=== PATIENT | female | born 1940 | race Caucasian/White ===

== ENCOUNTER 2017-05-06 02:24 | Emergency (ER) | payer OTHER, SELFPAY ==
[~2017-05-06] VITALS: Ht 152.4 cm; Wt 46.7 kg
[~2017-05-06 02:24] MED LIST: ACET325; ALBU3IS INH; ALBU90OI6 INH; ALPR.5 PO; ASPI81CH PO; AZIT250 PO; BISM87SU; BUDE6HFA; CEPH500 PO; CONEST.3; CONEST.625 PO; CONEST1.25 PO; ESTR2 PO; FLUT1DIS5 INH; GABA100 PO; HYDACE10B PO; IBUP400 PO; Mucinex600 MG PO; NITR.6SL SL; Norco 10-325 T1 EACH PO; Norco 5-325 Ta1 EACH PO; OXYACE5T PO; POTCHL20ER PO; PRED20 PO; Prednisone20 MG PO; Premarin0.3 MG PO; Silvadene20 GM TP; TRAM50 PO; Zithromax250 MG PO; [UNRECOGNIZED DRUG - CODE]
[2017-05-06] MEDS ORDERED: BUDE6HFA INH (02:43)
[2018-03-05] MEDS ORDERED: GABA100 PO (19:29)
[2018-03-05] MEDS ORDERED: Flagyl500 MG PO (22:39)
[2018-03-05] MEDS ORDERED: Cipro500 MG PO (22:39)
== END 2017-05-06 02:50 | disposition home or self-care (01) ==
LOC: ER 02:24
DX: R00.2 Palpitations (principal); J44.9 Chronic obstructive pulmonary disease, unspecified; I48.91 Unspecified atrial fibrillation; Z90.710 Acquired absence of both cervix and uterus; Z90.2 Acquired absence of lung [part of]; Z90.89 Acquired absence of other organs; Z87.891 Personal history of nicotine dependence
CPT/HCPCS: 93005; 93010; 99283

== ENCOUNTER 2017-06-11 13:09 | Inpatient (IN) | payer OTHER, SELFPAY ==
[~2017-06-11] VITALS: Ht 154.9 cm; Wt 47.3 kg
[~2017-06-11 13:09] MED LIST changes: +BUDE6HFA INH
[2017-06-11] MEDS ORDERED: Estradiol0.5 MG PO (13:20)
[2017-06-11] MEDS ORDERED: FLUT1DIS5 INH (13:21)
[2017-06-11] MEDS ORDERED: GABA100 PO (13:21)
[2017-06-11 14:29] LABS: BASOPHILS ABSOLUTE AUTO 0.01 K/mm3 (0.00-0.23); BASOPHILS PERCENT AUTO 0 % (0-2); EOSINOPHILS ABSOLUTE AUTO 0.01 K/mm3 (0.00-0.68); EOSINOPHILS PERCENT AUTO 0 % (0-6); Hematocrit 33.5 % (33.0-51.0); Hemoglobin 10.9 g/dL (11.5-16.0); IMMATURE GRAN ABSOLUTE AUTO 0.04 K/mm3 (0.00-0.10); IMMATURE GRAN PERCENT AUTO 1 % (0-1); LYMPHOCYTES ABSOLUTE AUTO 0.63 K/mm3 (0.84-5.20); LYMPHOCYTES PERCENT AUTO 9 % (21-46); MONOCYTES ABSOLUTE AUTO 0.11 K/mm3 (0.16-1.47); MONOCYTES PERCENT AUTO 2 % (4-13); Mean Corpuscular HGB 28.9 pg (26.0-34.0); Mean Corpuscular HGB Conc 32.5 g/dL (31.5-36.5); Mean Corpuscular Volume 89 fL (80-100); NEUTROPHILS ABSOLUTE AUTO 5.93 K/mm3 (1.96-9.15); NEUTROPHILS PERCENT AUTO 88 % (41-73); RDW Coefficient Variation 13.3 % (11.7-14.2); RDW Standard Deviation 43.7 fL (35.1-46.3); Red Blood Cell Count 3.77 M/mm3 (3.80-5.20); White Blood Cell Count 6.73 K/mm3 (4.00-11.30)
[2017-06-11 14:35] LABS: Mean Platelet Volume 10.1 fL (9.1-12.4); Platelet Count 317 K/mm3 (150-400)
[2017-06-11 14:46] LABS: Alanine Aminotransfer (ALT/SGP 27 U/L (12-78); Albumin, Blood 2.8 g/dL (3.4-5.0); Albumin/Globulin Ratio 0.5 (0.8-1.8); Alk Phos 88 U/L (50-136); Anion Gap 10 mmol/L (6-16); Aspartate Aminotrans (AST/SGOT 18 U/L (12-37); Bilirubin, Total 0.3 mg/dL (0.1-1.0); Blood Urea Nitrogen 9 mg/dL (8-24); Bun/Creatinine Ratio 18.6 (12.0-20.0); CO2, Blood 23 mmol/L (21-32); Calcium, Blood 8.9 mg/dL (8.5-10.1); Chloride, Blood 100 mmol/L (98-108); Creatinine, Blood 0.48 mg/dL (0.40-1.00); Globulin, Blood 5.1 g/dL (2.2-4.0); Glomerular Filtration Rate >60 (60-); Glucose, Blood 131 mg/dL (70-99); Potassium, Blood 3.6 mmol/L (3.5-5.5); Sodium, Blood 133 mmol/L (136-145); Total Protein, Blood 7.9 g/dL (6.4-8.2); Troponin I <0.015 ng/mL (0.000-0.040)
[2017-06-11] MEDS ORDERED: ALBU90OI61 INH (23:10)
[2017-06-11] MEDS ORDERED: CENTRUM SILVER1 EAC3 PO (23:12)
[2017-06-11] MEDS ORDERED: Calcium Citrat200 MG PO (23:13)
[2017-06-11] MEDS ORDERED: CYAN500 PO (23:14)
[2017-06-11] MEDS ORDERED: MAGOXI400 PO (23:14)
[2017-06-11] MEDS ORDERED: CHOL10002 PO (23:16)
[2017-06-11] MEDS ORDERED: AZIT250 PO (23:17)
[2017-06-11] MEDS ORDERED: LEVFLO250 PO (23:17)
[2017-06-11] MEDS ORDERED: PENICILLIN IM (23:18)
[2017-06-11] MEDS ORDERED: PRED10 PO (23:20)
[2017-06-12 05:23] LABS: BASOPHILS ABSOLUTE AUTO 0.01 K/mm3 (0.00-0.23); BASOPHILS PERCENT AUTO 0 % (0-2); EOSINOPHILS PERCENT AUTO 0 % (0-6); Hematocrit 33.6 % (33.0-51.0); Hemoglobin 11.2 g/dL (11.5-16.0); IMMATURE GRAN ABSOLUTE AUTO 0.04 K/mm3 (0.00-0.10); IMMATURE GRAN PERCENT AUTO 1 % (0-1); LYMPHOCYTES ABSOLUTE AUTO 0.86 K/mm3 (0.84-5.20); LYMPHOCYTES PERCENT AUTO 11 % (21-46); MONOCYTES ABSOLUTE AUTO 0.13 K/mm3 (0.16-1.47); MONOCYTES PERCENT AUTO 2 % (4-13); Mean Corpuscular HGB 29.1 pg (26.0-34.0); Mean Corpuscular HGB Conc 33.3 g/dL (31.5-36.5); Mean Corpuscular Volume 87 fL (80-100); Mean Platelet Volume 9.9 fL (9.1-12.4); NEUTROPHILS ABSOLUTE AUTO 6.85 K/mm3 (1.96-9.15); NEUTROPHILS PERCENT AUTO 87 % (41-73); Platelet Count 419 K/mm3 (150-400); RDW Coefficient Variation 13.6 % (11.7-14.2); RDW Standard Deviation 42.4 fL (35.1-46.3); Red Blood Cell Count 3.85 M/mm3 (3.80-5.20); White Blood Cell Count 7.89 K/mm3 (4.00-11.30)
[2017-06-12 05:40] LABS: Anion Gap 8 mmol/L (6-16); Blood Urea Nitrogen 9 mg/dL (8-24); CO2, Blood 26 mmol/L (21-32); Chloride, Blood 101 mmol/L (98-108); Glomerular Filtration Rate >60 (60-); Glucose, Blood 140 mg/dL (70-99); Potassium, Blood 3.7 mmol/L (3.5-5.5); Sodium, Blood 135 mmol/L (136-145)
[2017-06-15 05:36] LABS: BASOPHILS ABSOLUTE AUTO 0.01 K/mm3 (0.00-0.23); BASOPHILS PERCENT AUTO 0 % (0-2); EOSINOPHILS ABSOLUTE AUTO 0.02 K/mm3 (0.00-0.68); EOSINOPHILS PERCENT AUTO 0 % (0-6); Hematocrit 31.3 % (33.0-51.0); Hemoglobin 10.3 g/dL (11.5-16.0); IMMATURE GRAN ABSOLUTE AUTO 0.12 K/mm3 (0.00-0.10); IMMATURE GRAN PERCENT AUTO 1 % (0-1); LYMPHOCYTES ABSOLUTE AUTO 2.93 K/mm3 (0.84-5.20); LYMPHOCYTES PERCENT AUTO 30 % (21-46); MONOCYTES ABSOLUTE AUTO 0.81 K/mm3 (0.16-1.47); MONOCYTES PERCENT AUTO 8 % (4-13); Mean Corpuscular HGB 28.9 pg (26.0-34.0); Mean Corpuscular HGB Conc 32.9 g/dL (31.5-36.5); Mean Corpuscular Volume 88 fL (80-100); Mean Platelet Volume 9.9 fL (9.1-12.4); NEUTROPHILS ABSOLUTE AUTO 5.87 K/mm3 (1.96-9.15); NEUTROPHILS PERCENT AUTO 60 % (41-73); Platelet Count 449 K/mm3 (150-400); RDW Coefficient Variation 13.7 % (11.7-14.2); RDW Standard Deviation 44.3 fL (35.1-46.3); Red Blood Cell Count 3.56 M/mm3 (3.80-5.20); White Blood Cell Count 9.76 K/mm3 (4.00-11.30)
[2017-06-15 05:56] LABS: Anion Gap 7 mmol/L (6-16); Blood Urea Nitrogen 15 mg/dL (8-24); Bun/Creatinine Ratio 29.7 (12.0-20.0); CO2, Blood 30 mmol/L (21-32); Calcium, Blood 8.5 mg/dL (8.5-10.1); Chloride, Blood 101 mmol/L (98-108); Creatinine, Blood 0.51 mg/dL (0.40-1.00); Glomerular Filtration Rate >60 (60-); Glucose, Blood 91 mg/dL (70-99); Potassium, Blood 3.8 mmol/L (3.5-5.5); Sodium, Blood 138 mmol/L (136-145)
[2017-06-15] MEDS ORDERED: DOCU100 PO (10:50)
[2017-06-15] MEDS ORDERED: SACC250C PO (10:51)
[2018-03-05] MEDS ORDERED: GABA100 PO (19:29)
[2018-03-05] MEDS ORDERED: Cipro500 MG PO (22:39)
[2018-03-05] MEDS ORDERED: Flagyl500 MG PO (22:39)
== END 2017-06-15 11:20 | disposition home or self-care (01) | DRG 190 ==
LOC: ER 13:09 → PCU 17:19 → MEDS 17:19 → ENPENDDIS 06-15 10:00 → MEDS 06-15 11:20
PROVIDERS: Emergency Medicine; Hospitalist; Internal Medicine
DX: J44.0 Chronic obstructive pulmonary disease with (acute) lower respiratory infection (principal); J18.9 Pneumonia, unspecified organism; I48.0 Paroxysmal atrial fibrillation; E87.1 Hypo-osmolality and hyponatremia; Z99.81 Dependence on supplemental oxygen; J44.1 Chronic obstructive pulmonary disease with (acute) exacerbation; F41.9 Anxiety disorder, unspecified; G89.29 Other chronic pain; M54.9 Dorsalgia, unspecified; Z66 Do not resuscitate; Z85.118 Personal history of other malignant neoplasm of bronchus and lung; Z90.2 Acquired absence of lung [part of]; Z87.891 Personal history of nicotine dependence; Z88.5 Allergy status to narcotic agent; Z88.8 Allergy status to other drugs, medicaments and biological substances; Z91.040 Latex allergy status; Z79.899 Other long term (current) drug therapy
CPT/HCPCS: 36415; 71046; 71260; 80048; 80053; 84484; 85025; 93005; 93010; 94640; 94760; 94761; 96365; 96367; 96375; 97116; 97161; 99285; G8978; G8979; G8980; J0696; J1650; J1956; J2920; J2930; J3475; Q9967

== ENCOUNTER 2017-10-21 02:04 | Emergency (ER) | payer OTHER, SELFPAY ==
[~2017-10-21] VITALS: Ht 154.9 cm; Wt 48.1 kg
[~2017-10-21 02:04] MED LIST changes: +ALBU90OI61 INH; +CENTRUM SILVER1 EAC3 PO; +CHOL10002 PO; +CYAN500 PO; +Calcium Citrat200 MG PO; +DOCU100 PO; +Estradiol0.5 MG PO; +LEVFLO250 PO; +MAGOXI400 PO; +PENICILLIN IM; +PRED10 PO; +SACC250C PO
[2017-10-21 03:11] LABS: Source, Urine Catheter
[2017-10-21 03:14] LABS: BASOPHILS ABSOLUTE AUTO 0.04 K/mm3 (0.00-0.23); BASOPHILS PERCENT AUTO 0 % (0-2); EOSINOPHILS ABSOLUTE AUTO 0.04 K/mm3 (0.00-0.68); EOSINOPHILS PERCENT AUTO 0 % (0-6); Hematocrit 34.6 % (33.0-51.0); Hemoglobin 11.5 g/dL (11.5-16.0); IMMATURE GRAN ABSOLUTE AUTO 0.07 K/mm3 (0.00-0.10); IMMATURE GRAN PERCENT AUTO 1 % (0-1); LYMPHOCYTES ABSOLUTE AUTO 1.35 K/mm3 (0.84-5.20); LYMPHOCYTES PERCENT AUTO 10 % (21-46); MONOCYTES ABSOLUTE AUTO 0.65 K/mm3 (0.16-1.47); MONOCYTES PERCENT AUTO 5 % (4-13); Mean Corpuscular HGB 29.4 pg (26.0-34.0); Mean Corpuscular HGB Conc 33.2 g/dL (31.5-36.5); Mean Corpuscular Volume 89 fL (80-100); Mean Platelet Volume 10.2 fL (9.1-12.4); NEUTROPHILS PERCENT AUTO 84 % (41-73); Platelet Count 255 K/mm3 (150-400); RDW Coefficient Variation 13.2 % (11.7-14.2); RDW Standard Deviation 43.2 fL (35.1-46.3); Red Blood Cell Count 3.91 M/mm3 (3.80-5.20); White Blood Cell Count 12.95 K/mm3 (4.00-11.30)
[2017-10-21 03:16] LABS: Bilirubin, Urine Neg (Neg); Blood, Urine Neg (Neg); Glucose Qualitative, Urine Neg (Neg); Ketones, Urine Neg (Neg); Leukocyte Esterase, Urine Neg (Neg); Nitrite, Urine Neg (Neg); Protein, Urine Neg (Neg); Specific Gravity, Urine 1.005 (1.003-1.022); Urobilinogen, Urine NORM (Normal)
[2017-10-21 03:18] LABS: Appearance, Urine Clear (Clear); Color, Urine Pale Yellow (P-Yellow)
[2017-10-21 03:28] LABS: Prothrombin Time Results 10.3 Sec (9.7-11.5)
[2017-10-21 03:29] LABS: Alanine Aminotransfer (ALT/SGP 27 U/L (12-78); Albumin, Blood 3.6 g/dL (3.4-5.0); Alk Phos 74 U/L (50-136); Anion Gap 8 mmol/L (6-16); Aspartate Aminotrans (AST/SGOT 35 U/L (12-37); Bilirubin, Total 0.7 mg/dL (0.1-1.0); Blood Urea Nitrogen 8 mg/dL (8-24); Bun/Creatinine Ratio 14.7 (12.0-20.0); CO2, Blood 27 mmol/L (21-32); Calcium, Blood 8.6 mg/dL (8.5-10.1); Chloride, Blood 99 mmol/L (98-108); Creatinine, Blood 0.54 mg/dL (0.40-1.00); Globulin, Blood 3.7 g/dL (2.2-4.0); Glomerular Filtration Rate >60 (60-); Glucose, Blood 107 mg/dL (70-99); Potassium, Blood 4.4 mmol/L (3.5-5.5); Sodium, Blood 134 mmol/L (136-145); Total Protein, Blood 7.3 g/dL (6.4-8.2); Troponin I <0.015 ng/mL (0.000-0.040)
== END 2017-10-21 04:46 | disposition home or self-care (01) ==
LOC: ER 02:04
PROVIDERS: Emergency Medicine
DX: J44.1 Chronic obstructive pulmonary disease with (acute) exacerbation (principal); Z91.040 Latex allergy status; Z88.8 Allergy status to other drugs, medicaments and biological substances; Z88.5 Allergy status to narcotic agent; Z79.899 Other long term (current) drug therapy; Z79.2 Long term (current) use of antibiotics; J45.909 Unspecified asthma, uncomplicated; I48.91 Unspecified atrial fibrillation; Z87.891 Personal history of nicotine dependence
CPT/HCPCS: 71046; 80053; 81003; 83605; 84484; 85025; 85610; 85730; 87086; 93005; 93010; 99283

== ENCOUNTER 2017-10-24 09:01 | Emergency (ER) | payer OTHER, SELFPAY ==
[~2017-10-24] VITALS: Ht 160 cm; Wt 56.7 kg
[2017-10-24 09:34] LABS: BASOPHILS ABSOLUTE AUTO 0.05 K/mm3 (0.00-0.23); BASOPHILS PERCENT AUTO 1 % (0-2); EOSINOPHILS PERCENT AUTO 1 % (0-6); Hematocrit 34.1 % (33.0-51.0); Hemoglobin 11.5 g/dL (11.5-16.0); IMMATURE GRAN ABSOLUTE AUTO 0.02 K/mm3 (0.00-0.10); IMMATURE GRAN PERCENT AUTO 0 % (0-1); LYMPHOCYTES ABSOLUTE AUTO 2.99 K/mm3 (0.84-5.20); LYMPHOCYTES PERCENT AUTO 27 % (21-46); MONOCYTES ABSOLUTE AUTO 0.89 K/mm3 (0.16-1.47); MONOCYTES PERCENT AUTO 8 % (4-13); Mean Corpuscular HGB 29.3 pg (26.0-34.0); Mean Corpuscular HGB Conc 33.7 g/dL (31.5-36.5); Mean Corpuscular Volume 87 fL (80-100); NEUTROPHILS ABSOLUTE AUTO 7.01 K/mm3 (1.96-9.15); NEUTROPHILS PERCENT AUTO 63 % (41-73); RDW Coefficient Variation 13.2 % (11.7-14.2); RDW Standard Deviation 41.4 fL (35.1-46.3); Red Blood Cell Count 3.93 M/mm3 (3.80-5.20); White Blood Cell Count 11.06 K/mm3 (4.00-11.30)
[2017-10-24 09:41] LABS: Anion Gap 10 mmol/L (6-16); Blood Urea Nitrogen 6 mg/dL (8-24); Bun/Creatinine Ratio 9.9 (12.0-20.0); CO2, Blood 25 mmol/L (21-32); Calcium, Blood 8.9 mg/dL (8.5-10.1); Chloride, Blood 103 mmol/L (98-108); Glomerular Filtration Rate >60 (60-); Glucose, Blood 157 mg/dL (70-99); Potassium, Blood 3.9 mmol/L (3.5-5.5); Sodium, Blood 138 mmol/L (136-145); Troponin I <0.015 ng/mL (0.000-0.040)
[2017-10-24 09:44] LABS: Mean Platelet Volume 10.5 fL (9.1-12.4); Platelet Count 240 K/mm3 (150-400)
== END 2017-10-24 11:44 | disposition home or self-care (01) ==
LOC: ER 09:01
PROVIDERS: Emergency Medicine
DX: J44.1 Chronic obstructive pulmonary disease with (acute) exacerbation (principal); F41.9 Anxiety disorder, unspecified; Z91.041 Radiographic dye allergy status; Z88.8 Allergy status to other drugs, medicaments and biological substances; Z88.5 Allergy status to narcotic agent; Z79.899 Other long term (current) drug therapy; I48.91 Unspecified atrial fibrillation; Z87.891 Personal history of nicotine dependence
CPT/HCPCS: 71045; 80048; 84484; 85025; 93005; 93010; 94640; 96361; 96374; 99284; J2930; J7030

== ENCOUNTER 2018-05-18 11:23 | Emergency (ER) | payer OTHER ==
[~2018-05-18] VITALS: Ht 152.4 cm; Wt 48.5 kg
[~2018-05-18 11:23] MED LIST changes: +Cipro500 MG PO; +Flagyl500 MG PO
[2018-05-18 12:30] LABS: BASOPHILS ABSOLUTE AUTO 0.05 K/mm3 (0.00-0.23); BASOPHILS PERCENT AUTO 1 % (0-2); EOSINOPHILS PERCENT AUTO 2 % (0-6); Hematocrit 38.6 % (33.0-51.0); Hemoglobin 12.5 g/dL (11.5-16.0); IMMATURE GRAN ABSOLUTE AUTO 0.01 K/mm3 (0.00-0.10); IMMATURE GRAN PERCENT AUTO 0 % (0-1); LYMPHOCYTES ABSOLUTE AUTO 2.09 K/mm3 (0.84-5.20); LYMPHOCYTES PERCENT AUTO 42 % (21-46); MONOCYTES ABSOLUTE AUTO 0.39 K/mm3 (0.16-1.47); MONOCYTES PERCENT AUTO 8 % (4-13); Mean Corpuscular HGB Conc 32.4 g/dL (31.5-36.5); Mean Corpuscular Volume 93 fL (80-100); Mean Platelet Volume 9.7 fL (9.1-12.4); NEUTROPHILS ABSOLUTE AUTO 2.33 K/mm3 (1.96-9.15); NEUTROPHILS PERCENT AUTO 47 % (41-73); Platelet Count 258 K/mm3 (150-400); RDW Standard Deviation 47.8 fL (35.1-46.3); Red Blood Cell Count 4.17 M/mm3 (3.80-5.20); White Blood Cell Count 4.97 K/mm3 (4.00-11.30)
[2018-05-18 13:09] LABS: Alanine Aminotransfer (ALT/SGP 23 U/L (12-78); Albumin, Blood 3.6 g/dL (3.4-5.0); Alk Phos 61 U/L (50-136); Anion Gap 7 mmol/L (6-16); Aspartate Aminotrans (AST/SGOT 22 U/L (12-37); Bilirubin, Total 0.6 mg/dL (0.1-1.0); Blood Urea Nitrogen 8 mg/dL (8-24); Bun/Creatinine Ratio 13.8 (12.0-20.0); CO2, Blood 29 mmol/L (21-32); Calcium, Blood 8.4 mg/dL (8.5-10.1); Chloride, Blood 102 mmol/L (98-108); Creatinine, Blood 0.58 mg/dL (0.40-1.00); Ethanol (Alcohol), Blood, Med <3 mg/dL; Globulin, Blood 3.6 g/dL (2.2-4.0); Glomerular Filtration Rate >60 (60-); Glucose, Blood 95 mg/dL (70-99); Potassium, Blood 4.1 mmol/L (3.5-5.5); Sodium, Blood 138 mmol/L (136-145); Total Protein, Blood 7.2 g/dL (6.4-8.2); Troponin I <0.015 ng/mL (0.000-0.040)
[2018-05-18 13:16] LABS: Source, Urine Voided
[2018-05-18 13:34] LABS: Bilirubin, Urine Neg (Neg); Blood, Urine Neg (Neg); Glucose Qualitative, Urine Neg (Neg); Ketones, Urine Neg (Neg); Leukocyte Esterase, Urine 1+ (Neg); Nitrite, Urine Neg (Neg); Protein, Urine Neg (Neg); Specific Gravity, Urine 1.015 (1.003-1.022); Urobilinogen, Urine NORM (Normal)
[2018-05-18 13:50] LABS: Appearance, Urine Clear (Clear); Color, Urine Yellow (P-Yellow)
[2018-05-18 13:52] LABS: Bacteria Few /hpf; Red Blood Cells, Urine 0-2 /hpf (0-2); Squamous Epithelial Cells Few /hpf (Few)
[2018-05-18] MEDS ORDERED: MECL12.5 PO (14:05)
== END 2018-05-18 14:38 | disposition home or self-care (01) ==
LOC: ER 11:23
PROVIDERS: Emergency Medicine
DX: E87.8 Other disorders of electrolyte and fluid balance, not elsewhere classified (principal); Z91.040 Latex allergy status; Z88.8 Allergy status to other drugs, medicaments and biological substances; Z88.5 Allergy status to narcotic agent; Z79.899 Other long term (current) drug therapy; J44.9 Chronic obstructive pulmonary disease, unspecified; I48.91 Unspecified atrial fibrillation; Z87.891 Personal history of nicotine dependence
CPT/HCPCS: 36415; 70450; 71045; 80053; 81001; 84484; 85025; 87086; 93005; 93010; 96360; 96361; 99285-25; G0480; J2405; J7030

== ENCOUNTER 2019-01-09 04:23 | Emergency (ER) | payer OTHER ==
[~2019-01-09] VITALS: Ht 152.4 cm; Wt 61.2 kg
[~2019-01-09 04:23] MED LIST changes: +MECL12.5 PO
== END 2019-01-09 07:00 | disposition home or self-care (01) ==
LOC: ER 04:23
DX: F41.9 Anxiety disorder, unspecified (principal); G47.00 Insomnia, unspecified; J43.9 Emphysema, unspecified; Z85.118 Personal history of other malignant neoplasm of bronchus and lung; Z87.891 Personal history of nicotine dependence; Z91.040 Latex allergy status; I48.91 Unspecified atrial fibrillation; Z88.8 Allergy status to other drugs, medicaments and biological substances; Z88.5 Allergy status to narcotic agent; Z79.899 Other long term (current) drug therapy
CPT/HCPCS: 99283

== ENCOUNTER 2019-03-15 02:53 | Emergency (ER) | payer OTHER ==
[~2019-03-15] VITALS: Ht 152.4 cm; Wt 48.1 kg
[2019-03-15 03:34] LABS: BASOPHILS ABSOLUTE AUTO 0.06 K/mm3 (0.00-0.23); BASOPHILS PERCENT AUTO 1 % (0-2); EOSINOPHILS ABSOLUTE AUTO 0.37 K/mm3 (0.00-0.68); EOSINOPHILS PERCENT AUTO 4 % (0-6); Hematocrit 36.5 % (33.0-51.0); IMMATURE GRAN ABSOLUTE AUTO 0.01 K/mm3 (0.00-0.10); IMMATURE GRAN PERCENT AUTO 0 % (0-1); LYMPHOCYTES ABSOLUTE AUTO 1.95 K/mm3 (0.84-5.20); LYMPHOCYTES PERCENT AUTO 22 % (21-46); MONOCYTES ABSOLUTE AUTO 0.58 K/mm3 (0.16-1.47); MONOCYTES PERCENT AUTO 7 % (4-13); Mean Corpuscular HGB 30.8 pg (26.0-34.0); Mean Corpuscular HGB Conc 32.9 g/dL (31.5-36.5); Mean Corpuscular Volume 94 fL (80-100); Mean Platelet Volume 10.1 fL (9.1-12.4); NEUTROPHILS ABSOLUTE AUTO 5.88 K/mm3 (1.96-9.15); NEUTROPHILS PERCENT AUTO 66 % (41-73); Platelet Count 290 K/mm3 (150-400); RDW Standard Deviation 44.8 fL (35.1-46.3); White Blood Cell Count 8.85 K/mm3 (4.00-11.30)
[2019-03-15] MEDS ORDERED: BUSPIRONE (03:36)
[2019-03-15] MEDS ORDERED: FLUT1DIS5 INH (03:37)
[2019-03-15] MEDS ORDERED: LOSA25 (03:37)
[2019-03-15 03:52] LABS: Alanine Aminotransfer (ALT/SGP 18 U/L (12-78); Albumin, Blood 3.8 g/dL (3.4-5.0); Albumin/Globulin Ratio 0.9 (0.8-1.8); Alk Phos 72 U/L (50-136); Anion Gap 7 mmol/L (6-16); Aspartate Aminotrans (AST/SGOT 18 U/L (12-37); Bilirubin, Total 0.4 mg/dL (0.1-1.0); Blood Urea Nitrogen 9 mg/dL (8-24); Bun/Creatinine Ratio 15.1 (12.0-20.0); CO2, Blood 27 mmol/L (21-32); Calcium, Blood 9.4 mg/dL (8.5-10.1); Chloride, Blood 100 mmol/L (98-108); Globulin, Blood 4.1 g/dL (2.2-4.0); Glomerular Filtration Rate >60 (60-); Glucose, Blood 101 mg/dL (70-99); Potassium, Blood 3.7 mmol/L (3.5-5.5); Sodium, Blood 134 mmol/L (136-145); Total Protein, Blood 7.9 g/dL (6.4-8.2); Troponin I <0.015 ng/mL (0.000-0.040)
[2019-03-15 05:14] LABS: Source, Urine Clean Catch
[2019-03-15 05:18] LABS: Appearance, Urine Clear (Clear); Bilirubin, Urine Neg (Neg); Blood, Urine Neg (Neg); Color, Urine Yellow (P-Yellow); Glucose Qualitative, Urine Neg (Neg); Ketones, Urine Neg (Neg); Leukocyte Esterase, Urine 1+ (Neg); Nitrite, Urine Neg (Neg); Protein, Urine Neg (Neg); Urobilinogen, Urine NORM (Normal)
[2019-03-15 05:48] LABS: Bacteria Rare /hpf; Red Blood Cells, Urine Not Seen /hpf (0-2); Squamous Epithelial Cells Many /hpf (Few); White Blood Cells, Urine 0-2 /hpf (0-5)
== END 2019-03-15 06:45 | disposition home or self-care (01) ==
LOC: ER 02:53
PROVIDERS: Emergency Medicine
DX: R06.02 Shortness of breath (principal); J44.9 Chronic obstructive pulmonary disease, unspecified; I25.10 Atherosclerotic heart disease of native coronary artery without angina pectoris; I48.91 Unspecified atrial fibrillation; Z91.040 Latex allergy status; Z88.8 Allergy status to other drugs, medicaments and biological substances; Z88.5 Allergy status to narcotic agent; Z79.899 Other long term (current) drug therapy; Z79.51 Long term (current) use of inhaled steroids; Z99.81 Dependence on supplemental oxygen; Z87.891 Personal history of nicotine dependence
CPT/HCPCS: 36415; 71046; 80053; 81001; 84484; 85025; 93005; 93010; 99285-25

== ENCOUNTER 2019-07-02 15:14 | Emergency (ER) | payer OTHER ==
[~2019-07-02] VITALS: Ht 152.4 cm; Wt 43.1 kg
[~2019-07-02 15:14] MED LIST changes: +BUSPIRONE; +Klonopin0.5 MG PO; +LOSA25
[2019-07-02 15:50] LABS: BASOPHILS ABSOLUTE AUTO 0.04 K/mm3 (0.00-0.23); BASOPHILS PERCENT AUTO 1 % (0-2); EOSINOPHILS ABSOLUTE AUTO 0.09 K/mm3 (0.00-0.68); EOSINOPHILS PERCENT AUTO 1 % (0-6); Hematocrit 38.9 % (33.0-51.0); Hemoglobin 12.7 g/dL (11.5-16.0); IMMATURE GRAN ABSOLUTE AUTO 0.02 K/mm3 (0.00-0.10); IMMATURE GRAN PERCENT AUTO 0 % (0-1); LYMPHOCYTES ABSOLUTE AUTO 2.01 K/mm3 (0.84-5.20); LYMPHOCYTES PERCENT AUTO 26 % (21-46); MONOCYTES ABSOLUTE AUTO 0.45 K/mm3 (0.16-1.47); MONOCYTES PERCENT AUTO 6 % (4-13); Mean Corpuscular HGB 30.7 pg (26.0-34.0); Mean Corpuscular HGB Conc 32.6 g/dL (31.5-36.5); Mean Corpuscular Volume 94 fL (80-100); Mean Platelet Volume 10.5 fL (9.1-12.4); NEUTROPHILS ABSOLUTE AUTO 5.12 K/mm3 (1.96-9.15); NEUTROPHILS PERCENT AUTO 66 % (41-73); Platelet Count 286 K/mm3 (150-400); RDW Coefficient Variation 13.2 % (11.7-14.2); RDW Standard Deviation 46.3 fL (35.1-46.3); Red Blood Cell Count 4.14 M/mm3 (3.80-5.20); White Blood Cell Count 7.73 K/mm3 (4.00-11.30)
[2019-07-02 16:11] LABS: Alanine Aminotransfer (ALT/SGP 25 U/L (12-78); Albumin, Blood 3.6 g/dL (3.4-5.0); Albumin/Globulin Ratio 1.1 (0.8-1.8); Alk Phos 61 U/L (50-136); Anion Gap 4 mmol/L (6-16); Aspartate Aminotrans (AST/SGOT 21 U/L (12-37); Bilirubin, Total 0.5 mg/dL (0.1-1.0); Blood Urea Nitrogen 7 mg/dL (8-24); Bun/Creatinine Ratio 13.1 (12.0-20.0); CO2, Blood 27 mmol/L (21-32); Calcium, Blood 8.6 mg/dL (8.5-10.1); Chloride, Blood 108 mmol/L (98-108); Creatinine, Blood 0.53 mg/dL (0.40-1.00); Globulin, Blood 3.3 g/dL (2.2-4.0); Glomerular Filtration Rate >60 (60-); Glucose, Blood 88 mg/dL (70-99); Potassium, Blood 4.1 mmol/L (3.5-5.5); Sodium, Blood 139 mmol/L (136-145); Total Protein, Blood 6.9 g/dL (6.4-8.2); Troponin I <0.015 ng/mL (0.000-0.040)
[2019-07-02 16:28] LABS: Influenza A Negative (NEGATIVE)
[2019-07-02 16:29] LABS: Influenza B Negative (NEGATIVE)
== END 2019-07-02 17:30 | disposition home or self-care (01) ==
LOC: ER 15:14
PROVIDERS: Physician Assistant
DX: J44.9 Chronic obstructive pulmonary disease, unspecified (principal); J06.9 Acute upper respiratory infection, unspecified; I48.91 Unspecified atrial fibrillation; I10 Essential (primary) hypertension; I25.10 Atherosclerotic heart disease of native coronary artery without angina pectoris; Z91.040 Latex allergy status; Z88.6 Allergy status to analgesic agent; Z88.8 Allergy status to other drugs, medicaments and biological substances; Z88.5 Allergy status to narcotic agent; Z79.51 Long term (current) use of inhaled steroids; Z79.899 Other long term (current) drug therapy
CPT/HCPCS: 36415; 71046; 80053; 84484; 85025; 87804; 93005; 93010; 94640; 99284-25

== ENCOUNTER 2019-09-23 23:53 | Emergency (ER) | payer OTHER ==
[~2019-09-23] VITALS: Ht 152.4 cm; Wt 36.7 kg
== END 2019-09-24 01:16 | disposition home or self-care (01) ==
LOC: ER 23:53
DX: R04.0 Epistaxis (principal); R51 Headache; J44.9 Chronic obstructive pulmonary disease, unspecified; I25.10 Atherosclerotic heart disease of native coronary artery without angina pectoris; I48.91 Unspecified atrial fibrillation; F17.200 Nicotine dependence, unspecified, uncomplicated; Z91.040 Latex allergy status; Z88.8 Allergy status to other drugs, medicaments and biological substances; Z88.5 Allergy status to narcotic agent; Z79.899 Other long term (current) drug therapy
CPT/HCPCS: 30901; 99284

== ENCOUNTER 2020-10-19 04:36 | Inpatient (IN) | payer MEDICARE, OTHER ==
[~2020-10-19] VITALS: Ht 152.4 cm; Wt 35.8 kg
[2020-10-19 05:27] LABS: BASOPHILS ABSOLUTE AUTO 0.05 K/mm3 (0.00-0.23); BASOPHILS PERCENT AUTO 1 % (0-2); EOSINOPHILS ABSOLUTE AUTO 0.15 K/mm3 (0.00-0.68); EOSINOPHILS PERCENT AUTO 2 % (0-6); Hematocrit 34.3 % (33.0-51.0); Hemoglobin 11.4 g/dL (11.5-16.0); IMMATURE GRAN ABSOLUTE AUTO 0.02 K/mm3 (0.00-0.10); IMMATURE GRAN PERCENT AUTO 0 % (0-1); LYMPHOCYTES ABSOLUTE AUTO 1.84 K/mm3 (0.84-5.20); LYMPHOCYTES PERCENT AUTO 23 % (21-46); MONOCYTES ABSOLUTE AUTO 0.48 K/mm3 (0.16-1.47); MONOCYTES PERCENT AUTO 6 % (4-13); Mean Corpuscular HGB Conc 33.2 g/dL (31.5-36.5); Mean Corpuscular Volume 90 fL (80-100); NEUTROPHILS ABSOLUTE AUTO 5.59 K/mm3 (1.96-9.15); NEUTROPHILS PERCENT AUTO 69 % (41-73); Platelet Count 264 K/mm3 (150-400); RDW Coefficient Variation 13.4 % (11.7-14.2); RDW Standard Deviation 44.9 fL (35.1-46.3); White Blood Cell Count 8.13 K/mm3 (4.00-11.30)
[2020-10-19 05:48] LABS: Alanine Aminotransfer (ALT/SGP 62 U/L (12-78); Albumin, Blood 3.6 g/dL (3.4-5.0); Alk Phos 79 U/L (50-136); Anion Gap 5 mmol/L (6-16); Aspartate Aminotrans (AST/SGOT 107 U/L (12-37); Bilirubin, Total 1.2 mg/dL (0.1-1.0); Blood Urea Nitrogen 14 mg/dL (8-24); Bun/Creatinine Ratio 24.4 (12.0-20.0); CO2, Blood 28 mmol/L (21-32); Calcium, Blood 8.9 mg/dL (8.5-10.1); Chloride, Blood 100 mmol/L (98-108); Creatinine, Blood 0.57 mg/dL (0.40-1.00); Globulin, Blood 3.5 g/dL (2.2-4.0); Glomerular Filtration Rate >60 (60-); Glucose, Blood 104 mg/dL (70-99); Sodium, Blood 133 mmol/L (136-145); Total Protein, Blood 7.1 g/dL (6.4-8.2)
--- NOTE | 2020-10-19 16:33 | NUR ---
PT ARRIVED AT 1338 AOX4 AND COOPERATIVE OF CARE. PT 1 PERSON TO BEDSIDE COMMODE. PT TREATED FOR ABDOMINAL PAIN PER EMAR. PT RESTING IN BED A THIS TIME WITH CALL LIGHT WITHIN REACH. NO DISTRESS NOTED AT THIS TIME WILL CONTINUE TO MONITOR.
--- NOTE | 2020-10-19 18:20 | NUR ---
EMEMA ADMINISTERED, PT TOLERATED WELL AND HAD MEDIUM BM HARD AND FORMED.
--- NOTE | 2020-10-20 00:14 | NUR ---
BLOOD SUGAR OF 61 PT CONTINUES TO BE NPO. HOSPITALIST DR. QUINTANILLA NOTIFIED. HALF AMP OF D50 ORDERED PRN FOR HYPOGLYCEMIA. WILL GIVE ONCE PHARAMCY VERIFIES. DWIGHT ALSO ORDERED FOR PRN BLOOD SUGAR CHECKS IN ADDITION TO THE Q6 BS CHECKS.
[2020-10-20 05:15] LABS: Hematocrit 32.3 % (33.0-51.0); Hemoglobin 10.6 g/dL (11.5-16.0); Mean Corpuscular HGB 29.8 pg (26.0-34.0); Mean Corpuscular HGB Conc 32.8 g/dL (31.5-36.5); Mean Corpuscular Volume 91 fL (80-100); Mean Platelet Volume 10.3 fL (9.1-12.4); Platelet Count 256 K/mm3 (150-400); RDW Coefficient Variation 13.7 % (11.7-14.2); RDW Standard Deviation 46.2 fL (35.1-46.3); Red Blood Cell Count 3.56 M/mm3 (3.80-5.20); White Blood Cell Count 8.49 K/mm3 (4.00-11.30)
[2020-10-20 05:49] LABS: Alanine Aminotransfer (ALT/SGP 126 U/L (12-78); Albumin, Blood 3.2 g/dL (3.4-5.0); Alk Phos 102 U/L (50-136); Anion Gap 8 mmol/L (6-16); Aspartate Aminotrans (AST/SGOT 113 U/L (12-37); Bilirubin, Total 1.1 mg/dL (0.1-1.0); Blood Urea Nitrogen 7 mg/dL (8-24); Bun/Creatinine Ratio 13.9 (12.0-20.0); CO2, Blood 24 mmol/L (21-32); Calcium, Blood 8.3 mg/dL (8.5-10.1); Chloride, Blood 108 mmol/L (98-108); Globulin, Blood 3.2 g/dL (2.2-4.0); Glomerular Filtration Rate >60 (60-); Glucose, Blood 67 mg/dL (70-99); Potassium, Blood 3.4 mmol/L (3.5-5.5); Sodium, Blood 140 mmol/L (136-145); Total Protein, Blood 6.4 g/dL (6.4-8.2)
--- NOTE | 2020-10-20 06:49 | NUR ---
WELFARE WORKER SUMMARY PT A/O X4 WITH FORGETFULNESS. HALF AMP GIVEN X2 THIS SHIFT FOR HYPOGLYCEMIA. PT IS ASYOMPTOMAIC. PT HAS BEEN UP MOST OF THE NIGHT SHE HAD FREQUENT BOWEL MOVEMENTS AFTER ENEMA WAS GIVEN IN THE DAY. OTHER VITALS STABLE. MEDICATED FOR ABD PAIN X2 NOC SHIFT. CALL LIGHT WITHIN REACH, ABLE TO MAKE NEEDS KNOWN. REPORT GIVEN TO AM NURSE.
[2020-10-20] MEDS ORDERED: CLON.1 PO (10:14)
--- NOTE | 2020-10-20 18:09 | NUR ---
PT IS AOX4 AND COPERATIVE OF CARE. PT CONTINUES TO HAVE ABDOMINAL PAIN AND IS TREATED PER EMAR. PT HAS DENIED ANY NAUSEA AND IS A ONE PERSON WITH CANE TO RESTROOM. PLEASANT WITH ALL CARE WITH CONTINUE TO MONITOR.
--- NOTE | 2020-10-21 04:26 | NUR ---
DEBURRING AND TOOLING MACHINE OPERATOR SUMMARY PT A/O X4 WITH FORGETFULNESS. INDEPENDENT TO BSC. PT HAD 2 VERY SMALL BM'S THAT WERE PELLET LIKE. PT HAS HAD MULTIPLE FORMED SOFT BM'S THE NIGHT PRIOR. PT MEDICATED FOR ABD PAIN X3 DURING NOC SHIFT SO FAR. PT HAS STARTED ON CLEAR LIQUIDS DURING DAY SHIFT. VSS. ROOM AIR MAINTAINING GOOD 02 SATS. DENIED NAUSEA. CALL LIGHT WITHIN REACH, WILL CONTINUE TO MONITOR.
[2020-10-21 15:46] LABS: Hematocrit 30.8 % (33.0-51.0); Hemoglobin 10.3 g/dL (11.5-16.0); Mean Corpuscular HGB 30.5 pg (26.0-34.0); Mean Corpuscular HGB Conc 33.4 g/dL (31.5-36.5); Mean Corpuscular Volume 91 fL (80-100); Mean Platelet Volume 10.7 fL (9.1-12.4); Platelet Count 221 K/mm3 (150-400); RDW Coefficient Variation 13.8 % (11.7-14.2); Red Blood Cell Count 3.38 M/mm3 (3.80-5.20); White Blood Cell Count 8.47 K/mm3 (4.00-11.30)
[2020-10-21 16:12] LABS: Alanine Aminotransfer (ALT/SGP 77 U/L (12-78); Albumin/Globulin Ratio 0.9 (0.8-1.8); Alk Phos 86 U/L (50-136); Anion Gap 3 mmol/L (6-16); Aspartate Aminotrans (AST/SGOT 38 U/L (12-37); Bilirubin, Total 0.7 mg/dL (0.1-1.0); Blood Urea Nitrogen 4 mg/dL (8-24); Bun/Creatinine Ratio 9.5 (12.0-20.0); CO2, Blood 28 mmol/L (21-32); Calcium, Blood 8.4 mg/dL (8.5-10.1); Chloride, Blood 107 mmol/L (98-108); Creatinine, Blood 0.42 mg/dL (0.40-1.00); Globulin, Blood 3.4 g/dL (2.2-4.0); Glomerular Filtration Rate >60 (60-); Glucose, Blood 97 mg/dL (70-99); Potassium, Blood 4.2 mmol/L (3.5-5.5); Sodium, Blood 138 mmol/L (136-145); Total Protein, Blood 6.4 g/dL (6.4-8.2)
--- NOTE | 2020-10-21 17:33 | NUR ---
SHIFT SUMMARY PATIENT ALERT AND ORIENTED THIS SHIFT. PATIENT HAS BEEN INDEPENDENT IN THE ROOM. PATIENT MEDICATED FOR PAIN IN LUQ THROUGHOUT THIS SHIFT. NO ACUTE CHANGES THIS SHIFT. PATIENT SITTING UP IN BED THROUGHOUT THIS SHIFT. PATIENT CURRENTLY SITTING UP IN BED WATCHING TELEVISION.
--- NOTE | 2020-10-22 06:42 | NUR ---
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 PT has hx of colitis had several bowel movements yesterday, bowel care held. PT indep to bedside commode voids large amts of clear yellow urine. medicated for abd pain x 1 with helpful effect. Continues on IVF with potassium at 100 ml hour. advanced to full liquid diet in PT with panceratitis.
--- NOTE | 2020-10-22 14:40 | NUR ---
Met pt .in bed resting she reports to be doing nwell ans may be going home today or doran .Encouraged pt prayed for her.
[2020-10-22] MEDS ORDERED: MIRALAX17 G3 PO (15:11)
--- NOTE | 2020-10-22 17:34 | NUR ---
DISCHARGE SUMMARY PATIENT DISCHARGED TO HOME. PATIENT ALERT AND ORIENTED THIS SHIFT. PATIENT HAS BEEN INDEPENDENT IN THE ROOM THIS SHIFT. PATIENT MEDICATED 2X WITH ORAL PAIN MEDICATIONS FOR LUQ PAIN. PATIENT ADVANCED TO REGULAR DIET THIS SHIFT. PATIENT STATES THAT SHE "LOST HER FOOD TO [place]" SHORTLY AFTER LUNCH. WHEN EDUCATED THAT SHE WAS STILL RECOVERING AND MORE TIME IN THE HOSPITAL MAY BE BENEFICIAL, THE PATIENT CONTINUED TO INSIST ON DISCHARGE THIS SHIFT. PATIENT EDUCATED ON RISKS OF GOING HOME. PALIATIVE CARE IN THE ROOM WITH PATIENT PRIOR TO DISCHARGE TO DISCUSS PATIENT'S SITUATION. IV REMOVED PRIOR TO DISCHARGE. PATIENT DRESSED INDEPENDENTLY PRIOR TO DISCHARGE. PATIENT'S SISTER PROVIDING TRANSPORTATION HOME. PATIENT TO VEHICLE VIA WHEELCHAIR.
--- NOTE | 2020-10-22 18:08 | NUR ---
pt wanting to go home. she states she will do better at home. We reviewed the pat few months she quit smoking a month ago. 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 she has recently lost wieght again and now the panceatitsis. She spoke of her son who trajically by suicide and creied. She expressed financial stress with no secondary she states because of her cancer history they turn her down. we reviewed pancreatisis and GI distress. Gaver her dietary guidlines to take home. She is also a pt of dr Gibbs in pulmonology, She gave me permission to speak with him. Contacted him and reviewed her care. He was greatful for the update and will follow up. Pt high risk for readmission and return of cancer. She will allow me to call her at home. Will contact [facility] office of [facility] for insurance support. pt does not drive and states getting harder to walk to stol[place] when she cant get a ride. if futher illness or decline will see if she can get meals on wheels or more home support. Sh states she makes to much for medicaid. she sees father chico for spitual care will see if she can get grief couciling.
--- NOTE | 2020-10-22 18:11 | NUR ---
Spiritual care note: Mrs. Gonzalez was talkative and appeared to enjoy companionship and conversation. Her only child about a year ago from suicide, and she spoke at length about this loss. She reports a strong aki and even stronger political beliefs--making comments to the [employer] channel on TV. She appears spry and fiercely independant. Her relationship with her only sister is a carlos one, and the two are fighting often. Yet, Ly admits that when her son last year, "My sister was right there for me through the whole thing." Prayer and gentle beauty counselor was well recieved. She was in the process of discharge when we met. Her current POLST form from 2016 is incongruent with her wishes this admission. Therefore, if she returns to hospital, this should be addressed.
== END 2020-10-22 17:14 | disposition home or self-care (01) | DRG 439 ==
LOC: ER 04:36 → MEDS 12:10
PROVIDERS: Student in an Organized Health Care Education/Training Program; ADMIT Internal Medicine
DX: K85.90 Acute pancreatitis without necrosis or infection, unspecified (principal); J96.11 Chronic respiratory failure with hypoxia; K83.09 Other cholangitis; Z68.1 Body mass index [BMI] 19.9 or less, adult; J43.9 Emphysema, unspecified; I25.10 Atherosclerotic heart disease of native coronary artery without angina pectoris; Z66 Do not resuscitate; I48.0 Paroxysmal atrial fibrillation; K59.01 Slow transit constipation; H91.90 Unspecified hearing loss, unspecified ear; R63.6 Underweight; G89.29 Other chronic pain; E87.6 Hypokalemia; F17.200 Nicotine dependence, unspecified, uncomplicated; M54.9 Dorsalgia, unspecified; M62.84 Sarcopenia; E16.2 Hypoglycemia, unspecified; F41.9 Anxiety disorder, unspecified; Z88.5 Allergy status to narcotic agent; Z88.8 Allergy status to other drugs, medicaments and biological substances; Z88.6 Allergy status to analgesic agent; Z88.4 Allergy status to anesthetic agent; Z91.040 Latex allergy status; Z85.118 Personal history of other malignant neoplasm of bronchus and lung; Z90.2 Acquired absence of lung [part of]; Z98.890 Other specified postprocedural states; Z90.49 Acquired absence of other specified parts of digestive tract; Z87.440 Personal history of urinary (tract) infections; Z99.81 Dependence on supplemental oxygen; Z79.899 Other long term (current) drug therapy; Z79.51 Long term (current) use of inhaled steroids
CPT/HCPCS: 36415; 74177; 74181; 80053; 82947; 83690; 85025; 85027; 94640; 94760; 96361; 96365-59; 96375; 99285-25; A9270; G0480; J1170; J2270; J2543; J7030; J7120; Q9967

== ENCOUNTER 2021-03-03 10:33 | Emergency (ER) | payer OTHER ==
[~2021-03-03] VITALS: Ht 152.4 cm; Wt 40.8 kg
[~2021-03-03 10:33] MED LIST changes: +CLON.1 PO; +MIRALAX17 G3 PO
[2021-03-03 11:51] LABS: BASOPHILS ABSOLUTE AUTO 0.04 K/mm3 (0.00-0.23); BASOPHILS PERCENT AUTO 0 % (0-2); EOSINOPHILS ABSOLUTE AUTO 0.04 K/mm3 (0.00-0.68); EOSINOPHILS PERCENT AUTO 0 % (0-6); Hematocrit 37.2 % (33.0-51.0); Hemoglobin 11.9 g/dL (11.5-16.0); IMMATURE GRAN ABSOLUTE AUTO 0.06 K/mm3 (0.00-0.10); IMMATURE GRAN PERCENT AUTO 1 % (0-1); LYMPHOCYTES ABSOLUTE AUTO 1.35 K/mm3 (0.84-5.20); LYMPHOCYTES PERCENT AUTO 10 % (21-46); MONOCYTES ABSOLUTE AUTO 0.93 K/mm3 (0.16-1.47); MONOCYTES PERCENT AUTO 7 % (4-13); Mean Corpuscular Volume 91 fL (80-100); Mean Platelet Volume 9.5 fL (9.1-12.4); NEUTROPHILS ABSOLUTE AUTO 10.55 K/mm3 (1.96-9.15); NEUTROPHILS PERCENT AUTO 81 % (41-73); Platelet Count 345 K/mm3 (150-400); RDW Coefficient Variation 13.8 % (11.7-14.2); RDW Standard Deviation 46.3 fL (35.1-46.3); Red Blood Cell Count 4.11 M/mm3 (3.80-5.20); White Blood Cell Count 12.97 K/mm3 (4.00-11.30)
[2021-03-03 11:53] LABS: Alanine Aminotransfer (ALT/SGP 18 U/L (12-78); Albumin, Blood 3.3 g/dL (3.4-5.0); Albumin/Globulin Ratio 0.7 (0.8-1.8); Alk Phos 110 U/L (50-136); Anion Gap 4 mmol/L (6-16); Aspartate Aminotrans (AST/SGOT 16 U/L (12-37); Blood Urea Nitrogen 7 mg/dL (8-24); Bun/Creatinine Ratio 12.8 (12.0-20.0); CO2, Blood 27 mmol/L (21-32); Calcium, Blood 9.6 mg/dL (8.5-10.1); Chloride, Blood 102 mmol/L (98-108); Creatinine, Blood 0.55 mg/dL (0.40-1.00); Globulin, Blood 4.8 g/dL (2.2-4.0); Glomerular Filtration Rate >60 (60-); Glucose, Blood 118 mg/dL (70-99); Potassium, Blood 3.4 mmol/L (3.5-5.5); Sodium, Blood 133 mmol/L (136-145); Total Protein, Blood 8.1 g/dL (6.4-8.2)
[2021-03-03] MEDS ORDERED: Amoxicillin500 MG PO (17:26)
[2021-03-03] MEDS ORDERED: AZELASTINE137 MCG/01 (17:26)
== END 2021-03-03 19:00 | disposition home or self-care (01) ==
LOC: ER 10:33
PROVIDERS: Physician Assistant
DX: R04.0 Epistaxis (principal); J01.90 Acute sinusitis, unspecified; R10.9 Unspecified abdominal pain; F17.200 Nicotine dependence, unspecified, uncomplicated; Z91.040 Latex allergy status; Z88.5 Allergy status to narcotic agent; Z79.899 Other long term (current) drug therapy
CPT/HCPCS: 36415; 70450; 80053; 83690; 85025; 99284-25; A9270

== ENCOUNTER 2022-05-18 12:56 | Inpatient (IN) | payer OTHER ==
[~2022-05-18] VITALS: Ht 152.4 cm; Wt 40.1 kg
[~2022-05-18 12:56] MED LIST changes: +AZELASTINE137 MCG/01; +Amoxicillin500 MG PO
[2022-05-18 13:30] LABS: BASOPHILS ABSOLUTE AUTO 0.02 K/mm3 (0.00-0.23); BASOPHILS PERCENT AUTO 0 % (0-2); EOSINOPHILS ABSOLUTE AUTO 0.04 K/mm3 (0.00-0.68); EOSINOPHILS PERCENT AUTO 0 % (0-6); Hematocrit 37.7 % (33.0-51.0); Hemoglobin 12.2 g/dL (11.5-16.0); IMMATURE GRAN ABSOLUTE AUTO 0.13 K/mm3 (0.00-0.10); IMMATURE GRAN PERCENT AUTO 1 % (0-1); LYMPHOCYTES ABSOLUTE AUTO 1.84 K/mm3 (0.84-5.20); LYMPHOCYTES PERCENT AUTO 9 % (21-46); MONOCYTES ABSOLUTE AUTO 1.16 K/mm3 (0.16-1.47); MONOCYTES PERCENT AUTO 6 % (4-13); Mean Corpuscular HGB 28.2 pg (26.0-34.0); Mean Corpuscular HGB Conc 32.4 g/dL (31.5-36.5); Mean Corpuscular Volume 87 fL (80-100); Mean Platelet Volume 9.2 fL (9.1-12.4); NEUTROPHILS ABSOLUTE AUTO 17.48 K/mm3 (1.96-9.15); NEUTROPHILS PERCENT AUTO 85 % (41-73); Platelet Count 592 K/mm3 (150-400); RDW Coefficient Variation 13.4 % (11.7-14.2); RDW Standard Deviation 42.9 fL (35.1-46.3); Red Blood Cell Count 4.32 M/mm3 (3.80-5.20); White Blood Cell Count 20.67 K/mm3 (4.00-11.30)
[2022-05-18 13:45] LABS: Albumin, Blood 2.4 g/dL (3.4-5.0); Albumin/Globulin Ratio 0.5 (0.8-1.8); Bilirubin, Total 1.1 mg/dL (0.1-1.0); Bun/Creatinine Ratio 19.5 (12.0-20.0); Calcium, Blood 9.1 mg/dL (8.5-10.1); Creatinine, Blood 0.56 mg/dL (0.40-1.00); Globulin, Blood 5.3 g/dL (2.2-4.0); Potassium, Blood 2.7 mmol/L (3.5-5.5); Total Protein, Blood 7.7 g/dL (6.4-8.2)
[2022-05-18 17:50] LABS: Base Excess Venous 8.2 mmol/L; Bicarbonate Venous 30.8 mmol/L (24.0-30.0); PCO2 Venous 45.4 mmHg (38-42); pH Blood Venous 7.46 (7.34-7.37)
[2022-05-18 18:01] LABS: SARS-Cov-2 (COVID-19) PCR, MMC POSITIVE (NEGATIVE)
--- NOTE | 2022-05-18 23:25 | NUR ---
RESIDENT NOTIFIED NOTIFIED OF PT'S INCREASED HR, PT HAS BEEN SUSTAINING A HR OF 120-140, STATES SHE IS ANXIOUS AND THAT SHE USUALLY TAKES KLONIDINE & CATAPRESS @ NIGHT, SHE DENIES CP/PRESSURE BUT STATES IT IS A "LITTLE HARD TO CATCH MY BREATH", SPO2 REMAINS >95% ON 2L O2 VIA NC, LUNG SOUNDS UNCHANGED FROM ASSESSMENT. PAIGE WAS ALSO NOTIFIED THAT PT DID NOT RECIEVE FLUIDS UPON ADMISSION TO THE ER FOR SEPSIS PROTOCOL. A 500 ML NS BOLUS, NS @75 ML/HR X1 BAG,CATAPRESS & KLONIDINE WAS ORDERED AND GIVEN. CHARGE NURSE NOTIFIED.
[2022-05-19 01:06] LABS: Bun/Creatinine Ratio 19.7 (12.0-20.0); Calcium, Blood 8.9 mg/dL (8.5-10.1); Creatinine, Blood 0.51 mg/dL (0.40-1.00); Potassium, Blood 4.5 mmol/L (3.5-5.5)
[2022-05-19 04:15] LABS: Hematocrit 31.4 % (33.0-51.0); Hemoglobin 10.4 g/dL (11.5-16.0); Mean Corpuscular HGB 28.5 pg (26.0-34.0); Mean Corpuscular HGB Conc 33.1 g/dL (31.5-36.5); Mean Corpuscular Volume 86 fL (80-100); Mean Platelet Volume 9.2 fL (9.1-12.4); Platelet Count 463 K/mm3 (150-400); RDW Coefficient Variation 13.5 % (11.7-14.2); RDW Standard Deviation 42.3 fL (35.1-46.3); Red Blood Cell Count 3.65 M/mm3 (3.80-5.20); White Blood Cell Count 11.71 K/mm3 (4.00-11.30)
[2022-05-19 04:56] LABS: Bun/Creatinine Ratio 18.5 (12.0-20.0); Calcium, Blood 8.4 mg/dL (8.5-10.1); Creatinine, Blood 0.43 mg/dL (0.40-1.00); Magnesium, Blood 1.7 mg/dL (1.6-2.4); Potassium, Blood 4.5 mmol/L (3.5-5.5)
--- NOTE | 2022-05-19 05:30 | NUR ---
MD NOTIFICATION NOTIFIED OF PT HR TRENDING BACK UP & SUSTAINING 125-130'S & 99.9 TEMP. NO NEW ORDERS AT THIS TIME WERE GIVEN, HE WANTS TO CONTINUE TO MONITOR AND WAIT FOR TO RE-EVALUATE THIS AM. CHARGE NURSE NOTIFIED. PT IS CURRENTLY SLEEPING.
--- NOTE | 2022-05-19 05:52 | NUR ---
SUMMARY PT REMAINS A&O X4, SHE IS CURRENTLY ON 2L O2 VIA NC, SPO2 >96%, LUNG SOUNDS UNCHANGED FROM INITIAL ASSESSMENT. PT WAS GIVEN A 500 ML NS BOLUS PER MD DUE TO SEPSIS PROTOCOL & SUSTAINED HR >135, NS @ 75 ML/HR CURRENTLY INFUSING, PT'S HR DID COME DOWN TO 75-80'S AFTER BOLUS AND ADMINISTRATION OF HER ANXIETY MEDS, HR INCREASED THIS AM AFTER LAB WAS IN TO DRAW BLOOD, PT IS CURRENTLY SLEEPING, HR 125-130 ST, DENIES CP/PRESSURE, TEMP NOTED OF 99.9. PT HAS BEEN CONTINENT OF URINE, USING [facility]. NO OTHER ACUTE CHANGES NOTED, WCTM & REPORT TO ONCOMING SHIFT, CALL LIGHT IN REACH.
--- NOTE | 2022-05-19 08:45 | NUR ---
INITIAL ASSESSMENT: Patient is awake sitting up in the bed, eating breakfast. She is alert and oriented. She reports 8/10 lower back pain, patient reports she has had alot of back surgeries. HRR, ST at 115. LS Dim in the bases, Biox low 90s on 2L via NC. She has a dry NPC. Resp shallow and labored. BT+. PPP. VSS. AM meds given this morning with a sip of water. She denies other needs at this time. Call light in reach, will continue to monitor.
--- NOTE | 2022-05-19 15:40 | NUR ---
Update: Dr. Baumann has been to see the patient, he discussed the possibility of the patient having lung CA again. She is very understanding, he discussed possible tests that are to come. Dr. Baumann will let the patients primary Head Porter start the process. Palliative care RN Joni has come to see the patient and an updated POLST was filled out, pt is now DNR. Patient is resting comfortably, call light in reach.
--- NOTE | 2022-05-19 16:34 | NUR ---
Pt resting in bed and is A&OX4. Pt confirms wishes to complete new POLST. Offered therapeutic listening as Pt discusses losing her son a year ago to suicide. Offered emotional support as Pt is intermittently tearful reporting she had thoughts in the past of suicide as well. She reports no suicidal thoughts now. Continued therapeutic listening as Pt reports plan to discussed findings with Dr Gibbs regarding potential cancer in the lungs. She reports being undecided whether she will pursue treatment. She states it will depend on severity of treatment options and how long her life sill be prolonged. Assisted Pt with completing new POLST. POLST placed in Pt's paper chart for hospitalist to sign during rounds. Spoke with Primary RN Syeda and discussed case. Palliative Care will remain available
--- NOTE | 2022-05-19 16:44 | NUR ---
Report given to Carol roberts RN, patient will be transferred to [facility].
--- NOTE | 2022-05-19 18:42 | NUR ---
PT TRANSFERRED TO [place] [id number] FROM [facility] APPROX 1650. ASSISTED TO COMMODE WITH 1 PERSON ASSIST WITH MAINFRAME APPLICATIONS DEVELOPER. EXPRESSED CONCERN ABOUT NOT RECEIVING HER PAIN MEDS SHE HAS TAKEN THEM FOR 39 YEARS. DISCUSSED CURRENT MED REGIME AND PT AGREEABLE AT THIS TIME. WILL CONTINUE TO MONITER THROUGH SHIFT CHANGE.
[2022-05-20 05:08] LABS: International Normalized Ratio 1.16; Prothrombin Time Results 12.1 Sec (9.7-11.5)
--- NOTE | 2022-05-20 05:20 | NUR ---
CHRONIC ANXIETY RELIEVED BY PRN MEDS. ALSO ANXIOUS REGARDING MEDICATIONS, PAIN MEDICINE SCHEDULE. COMPLAINS OF CHRONIC BACK PAIN. NEW IV PLACED, 22G L FA. X1 ASSIST TO BSC. MILD CONFUSION AT TIMES. VSS ON 1L O2 NC. MILD DIFFICULTY SWALLOWING PILLS NOTED, PT PREFERS TO HAVE APPLESAUCE AVAILABLE WHILE TAKING PILLS WHOLE. COVID ISOLATION CONTINUES, RECENT POSITIVE ANTIGEN TEST PER REPORT. CALLS FREQUENTLY DUE TO CONCERNS ABOUT MEDS AND ANXIETY.
--- NOTE | 2022-05-20 12:05 | NUR ---
Spiritual carre visit conducted. Patient is lying in bed and alert. Patient is immediately tearful about her new diagnosis, the recent suicidal of her son and her concerns about how she will manage alone given her current status. I provide anxiety contianment, grief support and exploration of options of managing her life going forward (looking at her resources, coping skills, friends and aki). I also so provide prayer. Patient responds well and shows signs of decressed stress and being comforted. I will continue to remain available to patient and family.
[2022-05-20] MEDS ORDERED: ALBU2.5V5 INH (14:05)
[2022-05-20] MEDS ORDERED: GUAI600T33 PO (14:05)
[2022-05-20] MEDS ORDERED: SENN187 PO (14:06)
[2022-05-20] MEDS ORDERED: PRED20 PO (14:06)
[2022-05-20] MEDS ORDERED: VISBIOME 112.51 EACH PO (14:07)
[2022-05-20] MEDS ORDERED: CEFP200 PO (14:07)
[2022-05-20] MEDS ORDERED: CLIN150 PO (14:08)
--- NOTE | 2022-05-20 15:45 | NUR ---
DISCHARGE INSTRUCTIONS COMPLETED AND DISCUSSED WITH PT EXPRESSING UNDERSTANDING. SCRIPTS FAXED TO [facility]. FRIEND HERE TO PICK PT UP. TO [facility] VIA W/C.
== END 2022-05-20 15:10 | disposition home or self-care (01) | DRG 180 ==
LOC: ER 12:56 → PCU 15:18 → MEDS 05-19 16:50
PROVIDERS: Emergency Medicine; Family Medicine; Internal Medicine Critical Care Medicine; Nurse Practitioner Acute Care; ADMIT Internal Medicine
DX: C34.11 Malignant neoplasm of upper lobe, right bronchus or lung (principal); E43 Unspecified severe protein-calorie malnutrition; U07.1 COVID-19; J96.21 Acute and chronic respiratory failure with hypoxia; J96.22 Acute and chronic respiratory failure with hypercapnia; J18.9 Pneumonia, unspecified organism; R64 Cachexia; Z68.1 Body mass index [BMI] 19.9 or less, adult; E87.20 Acidosis, unspecified; E87.1 Hypo-osmolality and hyponatremia; J43.9 Emphysema, unspecified; Z66 Do not resuscitate; D72.828 Other elevated white blood cell count; T38.0X5A Adverse effect of glucocorticoids and synthetic analogues, initial encounter; I10 Essential (primary) hypertension; K21.9 Gastro-esophageal reflux disease without esophagitis; E87.6 Hypokalemia; I48.0 Paroxysmal atrial fibrillation; M54.50 Low back pain, unspecified; Z85.118 Personal history of other malignant neoplasm of bronchus and lung; Z85.51 Personal history of malignant neoplasm of bladder; Z87.01 Personal history of pneumonia (recurrent); Z98.890 Other specified postprocedural states; Z87.891 Personal history of nicotine dependence; Z90.2 Acquired absence of lung [part of]; Z88.6 Allergy status to analgesic agent; Z88.8 Allergy status to other drugs, medicaments and biological substances; Z91.040 Latex allergy status; Z79.51 Long term (current) use of inhaled steroids; Z79.899 Other long term (current) drug therapy
CPT/HCPCS: 36415; 71045; 71260; 80048; 80053; 82803; 83605; 83735; 84145; 85025; 85027; 85610; 87040; 93005; 93010; 94640; 94644; 94664; 94760; 94761; 94762; 96365-59; 96366-59; 96368; 99285-25; A9270; J0456; J0696; J1650; J2930; J3480; J7030; J7040; J7050; J7512; Q9967; U0004

== ENCOUNTER 2022-06-08 20:17 | Inpatient (IN) | payer OTHER ==
[~2022-06-08] VITALS: Ht 154.9 cm; Wt 38.2 kg
[~2022-06-08 20:17] MED LIST changes: +ALBU2.5V5 INH; +CEFP200 PO; +CLIN150 PO; +GUAI600T33 PO; +SENN187 PO; +VISBIOME 112.51 EACH PO
[2022-06-08 20:40] LABS: BASOPHILS ABSOLUTE AUTO 0.06 K/mm3 (0.00-0.23); BASOPHILS PERCENT AUTO 0 % (0-2); EOSINOPHILS ABSOLUTE AUTO 0.01 K/mm3 (0.00-0.68); EOSINOPHILS PERCENT AUTO 0 % (0-6); Hematocrit 33.9 % (33.0-51.0); Hemoglobin 10.9 g/dL (11.5-16.0); IMMATURE GRAN ABSOLUTE AUTO 0.07 K/mm3 (0.00-0.10); IMMATURE GRAN PERCENT AUTO 0 % (0-1); LYMPHOCYTES ABSOLUTE AUTO 1.01 K/mm3 (0.84-5.20); LYMPHOCYTES PERCENT AUTO 6 % (21-46); MONOCYTES PERCENT AUTO 6 % (4-13); Mean Corpuscular HGB 28.7 pg (26.0-34.0); Mean Corpuscular HGB Conc 32.2 g/dL (31.5-36.5); Mean Corpuscular Volume 89 fL (80-100); Mean Platelet Volume 9.7 fL (9.1-12.4); NEUTROPHILS ABSOLUTE AUTO 13.66 K/mm3 (1.96-9.15); NEUTROPHILS PERCENT AUTO 87 % (41-73); Platelet Count 615 K/mm3 (150-400); RDW Coefficient Variation 14.1 % (11.7-14.2); RDW Standard Deviation 46.3 fL (35.1-46.3); White Blood Cell Count 15.71 K/mm3 (4.00-11.30)
[2022-06-08 20:58] LABS: Albumin, Blood 2.2 g/dL (3.4-5.0); Albumin/Globulin Ratio 0.4 (0.8-1.8); Bilirubin, Total 0.6 mg/dL (0.1-1.0); Bun/Creatinine Ratio 14.3 (12.0-20.0); Calcium, Blood 8.5 mg/dL (8.5-10.1); Creatinine, Blood 0.42 mg/dL (0.40-1.00); Globulin, Blood 5.3 g/dL (2.2-4.0); Total Protein, Blood 7.5 g/dL (6.4-8.2)
[2022-06-09 01:23] LABS: Influenza A, PCR NEGATIVE (NEGATIVE); Influenza B, PCR NEGATIVE (NEGATIVE); Resp Syncytial Virus, PCR NEGATIVE (NEGATIVE); SARS-Cov-2 (COVID-19) PCR, MMC NEGATIVE (NEGATIVE)
[2022-06-09 05:18] LABS: Hematocrit 29.3 % (33.0-51.0); Hemoglobin 9.2 g/dL (11.5-16.0); Mean Corpuscular HGB 28.6 pg (26.0-34.0); Mean Corpuscular HGB Conc 31.4 g/dL (31.5-36.5); Mean Corpuscular Volume 91 fL (80-100); Mean Platelet Volume 9.7 fL (9.1-12.4); Platelet Count 481 K/mm3 (150-400); RDW Coefficient Variation 14.3 % (11.7-14.2); Red Blood Cell Count 3.22 M/mm3 (3.80-5.20); White Blood Cell Count 15.66 K/mm3 (4.00-11.30)
[2022-06-09 05:44] LABS: Calcium, Blood 7.1 mg/dL (8.5-10.1); Creatinine, Blood 0.36 mg/dL (0.40-1.00); Potassium, Blood 3.5 mmol/L (3.5-5.5)
--- NOTE | 2022-06-09 06:27 | NUR ---
SHIFT SUMMARY PATIENT ADMITTED AT 0240 FROM ER. PATIENT SETTLED INTO ROOM. PATIENT ORIENTED TO CALL LIGHT AND TV CONTROL. PATIENT IS A&O X4. PATIENT MEDICATED X1 FOR PAIN. PATIENT MEDICATED X1 FOR NAUSEA. PATIENT REPORTS SHORTNESS OF BREATH. PATIENT ON 3L VIA N/C. PATIENT RECIEVING FREQUENT BREATHING TREATMENTS. PATIENT MAINTAINING SATS ABOVE 95%. PATIENT IS A SBA TO THE BS. PATIENT POTASSIUM 3.0, REPLACEMENT ORDERED AND GIVEN. TELE NOTIFIED THIS RN THAT THE PATIENTS HR WAS SUSTAINING 150'S. NOTIFIED, NEW ORDERS FOR 1L BOLUS. PATIENT HAS VERY POOR APPETITE, REPORTS NOT BEING ABLE TO EAT FOR 5 DAYS AND HAS LOST A LOT OF WEIGHT RECENTLY. PATIENT IS VERY PLEASANT AND COOPERATIVE WITH CARE.
[2022-06-09 14:23] LABS: Magnesium, Blood 1.4 mg/dL (1.6-2.4); Phosphorus, Blood 1.9 mg/dL (2.5-4.9)
--- NOTE | 2022-06-09 18:23 | NUR ---
SHIFT SUMMARY- PT AAOX3-4 THIS SHIFT. HEART RATE BETTER CONTROLLED AFTER STARTING METOPROLOL.
[2022-06-10 07:51] LABS: BASOPHILS ABSOLUTE AUTO 0.09 K/mm3 (0.00-0.23); BASOPHILS PERCENT AUTO 1 % (0-2); EOSINOPHILS ABSOLUTE AUTO 0.36 K/mm3 (0.00-0.68); EOSINOPHILS PERCENT AUTO 3 % (0-6); Hematocrit 28.8 % (33.0-51.0); Hemoglobin 9.2 g/dL (11.5-16.0); IMMATURE GRAN ABSOLUTE AUTO 0.08 K/mm3 (0.00-0.10); IMMATURE GRAN PERCENT AUTO 1 % (0-1); LYMPHOCYTES ABSOLUTE AUTO 1.89 K/mm3 (0.84-5.20); LYMPHOCYTES PERCENT AUTO 13 % (21-46); MONOCYTES ABSOLUTE AUTO 1.13 K/mm3 (0.16-1.47); MONOCYTES PERCENT AUTO 8 % (4-13); Mean Corpuscular HGB 28.9 pg (26.0-34.0); Mean Corpuscular HGB Conc 31.9 g/dL (31.5-36.5); Mean Corpuscular Volume 91 fL (80-100); Mean Platelet Volume 9.3 fL (9.1-12.4); NEUTROPHILS ABSOLUTE AUTO 11.04 K/mm3 (1.96-9.15); NEUTROPHILS PERCENT AUTO 76 % (41-73); Platelet Count 492 K/mm3 (150-400); RDW Coefficient Variation 14.5 % (11.7-14.2); RDW Standard Deviation 48.1 fL (35.1-46.3); Red Blood Cell Count 3.18 M/mm3 (3.80-5.20); White Blood Cell Count 14.59 K/mm3 (4.00-11.30)
--- NOTE | 2022-06-10 07:51 | NUR ---
PHARMACY BILLING ADJUDICATOR SUMMARY PT A/OX3. PT APPEARS ANXIOUS WHEN AWAKE; CONSTANTLY SHUFFLING THINGS AROUND IN HER BED. PT ON 4L O2 NC; OFTEN TAKES O2 OFF AND FORGETS TO PUT IT BACK ON. PT SOB OF BREATH W/ACTIVITY OR W/OUT O2. PT REPORTING 8/10 BACK PAIN; MED P/EMAR. PT SWALLOWING PILLS WHOLE 1 AT A TIME. PT ABLE TO MAKE KNEEDS KNOWN. CALL LIGHT ACCESSIBLE.
[2022-06-10 08:18] LABS: Bun/Creatinine Ratio 7.8 (12.0-20.0); Calcium, Blood 7.6 mg/dL (8.5-10.1); Creatinine, Blood 0.38 mg/dL (0.40-1.00); Magnesium, Blood 1.5 mg/dL (1.6-2.4); Phosphorus, Blood 1.6 mg/dL (2.5-4.9); Potassium, Blood 3.3 mmol/L (3.5-5.5)
--- NOTE | 2022-06-10 11:44 | NUR ---
NOTIFIED ABRIO OF HR 70-130 PVC, PAC, BBB, SHORT RUNS OF SVT AND ELECTROLYTES THIS AM. SAID SHE WOULD PLACE ORDERS FOR ELECTROLYTE REPLACEMENTS AND SMALL BETA LISA.
--- NOTE | 2022-06-10 18:17 | NUR ---
PT AAOX4 TODAY-BUT IS FORGETFUL. EATING MORE TODAY THAN YESTERDAY. CALLING APPROPRIATELY.
--- NOTE | 2022-06-11 05:34 | NUR ---
PATIENT ALERT AND ORIENTED, [place], ST ON TELE, 4.5L NC, STANDBY ASSIST TO BEDSIDE COMMODE, MECHANICAL SOFT DIET, MEDICATIONS WHOLE WITH APPLESAUCE, CONTINUOUS CONGESTED COUGH, BILATERAL FA IV'S, NO EVENTS OVERNIGHT, PATIENT HAD BM.
[2022-06-11 10:46] LABS: Calcium, Blood 8.2 mg/dL (8.5-10.1); Creatinine, Blood 0.5 mg/dL (0.40-1.00); Magnesium, Blood 1.8 mg/dL (1.6-2.4); Phosphorus, Blood 2.5 mg/dL (2.5-4.9); Potassium, Blood 3.3 mmol/L (3.5-5.5)
--- NOTE | 2022-06-11 16:20 | NUR ---
PT WEAKER TODAY AND KEEPS STATING, " THE DOCTOR TOLD ME I AM DYING." RN TRIED TO REORIENT PT ABOUT HER SITUATION. PT REFUSED TO EAT HER LUNCH AFTER "THE NEWS." PT KEEPS STATING, "THE DOCTOR TOLD ME MY FOOD ISN'T GOING WHERE IT NEEDS TO GO." PT CONFUSED ABOUT HER SITUATION. CALLING APPROPRIATELY. SBA TO BSC. FORGETFUL- AAOX2-3. PAIN WELL CONTROLLED WITH NORCO.
--- NOTE | 2022-06-12 06:35 | NUR ---
FAMILY READINESS SUPPORT ASSISTANT SUMMARY PT A/OX4. SOME FORGETFULNESS; CAN FIXATE ON THINGS AND BECOME DIFFICULT TO REDIRECT. PT ON TELE; HR HAS BEEN SINUS TACH IN THE LOW 100'S; BRIEF EPISODE OF HR INTO THE 150'S. NOTIFIED BY TECH--DURING EPISODE PT WAS COUGHING AND HAD NC OFF. PT CURRENLTY ON 3.5L O2 NC. PT ABLE TO MAKE NEEDS KNOWN. SBA T/BSC. NEW IV PLACED IN RT FOREARM. CALL LIGHT ACCESSIBLE.
[2022-06-12 07:23] LABS: Magnesium, Blood 1.9 mg/dL (1.6-2.4)
[2022-06-12 07:30] LABS: Bun/Creatinine Ratio 11.2 (12.0-20.0); Calcium, Blood 8.8 mg/dL (8.5-10.1); Creatinine, Blood 0.45 mg/dL (0.40-1.00); Phosphorus, Blood 2.2 mg/dL (2.5-4.9); Potassium, Blood 3.7 mmol/L (3.5-5.5)
--- NOTE | 2022-06-12 20:17 | NUR ---
SHIFT SUMMARY PTN PLEASANT AND COOPERATIVE, SOME CONFUSION. PTN HAD SWALLOW STUDY DONE TODAY AND PLACED ON MECHANICAL SOFT/NECTAR THICK LIQUIDS. PTN TAKES MEDICATIONS WITH APPLESAUCE AND SIPS OF WATER. TELEMETRY REPORTED TWO SEPARATE RUNS OF VTACH OF 4-5 BEATS EACH TIME, REPORTED TO DR LEBLANC. IV IN R ARM STARTED LEAKING AND NEW ONE WAS PLACED IN L WRIST. PAIN REPORTED TO BACK, MEDICATIONS PER EMAR. CONTINUE TO FOLLOW.
--- NOTE | 2022-06-13 05:05 | NUR ---
SHIFT SUMMARY PATIENT AXO X3 WITH CONFUSION. TRYING TO SLAP STAFF HANDS STAFF ASSIST PATIENT TO BSC. ANXIOUS FIRST PART OF SHIFT. NOT REMEMBERING STAFF WHO HELPED HER PREVIOUSLY AND WHAT AN IV IS. PIV REMAINS INTACT. IV ABXS INFUSED. ON TELEMETRY ST 115. DENIES CHEST PAIN AND N/V. RT IN FOR BREATHING TX. ON 3L O2 NC. REPORTED BACK PAIN X ONE AND NORCO GIVEN PER EMAR. CALL LIGHT IN REACH. BED IN LOWEST POSITION AND BED ALARM ACTIVATED. WILL CONTINUE TO MONITOR UNTIL DAY SHIFT NURSE ASSUMES CARE.
[2022-06-13 05:19] LABS: BASOPHILS ABSOLUTE AUTO 0.11 K/mm3 (0.00-0.23); BASOPHILS PERCENT AUTO 1 % (0-2); EOSINOPHILS ABSOLUTE AUTO 0.44 K/mm3 (0.00-0.68); EOSINOPHILS PERCENT AUTO 4 % (0-6); Hematocrit 28.2 % (33.0-51.0); IMMATURE GRAN ABSOLUTE AUTO 0.05 K/mm3 (0.00-0.10); IMMATURE GRAN PERCENT AUTO 1 % (0-1); LYMPHOCYTES ABSOLUTE AUTO 2.14 K/mm3 (0.84-5.20); LYMPHOCYTES PERCENT AUTO 21 % (21-46); MONOCYTES ABSOLUTE AUTO 1.05 K/mm3 (0.16-1.47); MONOCYTES PERCENT AUTO 10 % (4-13); Mean Corpuscular HGB 28.6 pg (26.0-34.0); Mean Corpuscular HGB Conc 31.9 g/dL (31.5-36.5); Mean Corpuscular Volume 90 fL (80-100); Mean Platelet Volume 9.7 fL (9.1-12.4); NEUTROPHILS PERCENT AUTO 62 % (41-73); Platelet Count 594 K/mm3 (150-400); RDW Coefficient Variation 14.6 % (11.7-14.2); RDW Standard Deviation 47.6 fL (35.1-46.3); Red Blood Cell Count 3.15 M/mm3 (3.80-5.20); White Blood Cell Count 10.09 K/mm3 (4.00-11.30)
--- NOTE | 2022-06-13 17:20 | NUR ---
DAYSHIFT SUMMARY No acute changes to patient status this shift. Worked with therapy this morning & PRODUCTION ILLUSTRATOR reevaluated patient. Reviewed med list with pharmacist, ok to give all meds crush in applesauce. Guafenisin cannot be crushed, med changed to liquid form. IV Unasyn & Cefepime administred. Patient on 3lpm, receiving respiratory treatments. Continues to be SOB w/ activity, tripoding in bed. Plan is to discharge home with homehealth. No plans to discharge this weekend. Will contine plan of care.
--- NOTE | 2022-06-14 04:34 | NUR ---
SHIFT SUMMARY PATIENT HAD NO ACUTE CHANGES. AXOX 2-3 WITH CONFUSION AT TIMES REPEATING HERSELF WHEN ANSWERS ALREADY BEEN GIVEN. SBA TO BSC. SOB W/EXERTION. ON 3L O2 NC. RT IN FOR BREATHING TX. TAKES MEDICATION CRUSHED IN APPLESAUCE. VSS/AFEBRILE. REPORTED BACK PAIN X ONE AND NORCO GIVEN PER EMAR. PIV REMAINS INTACT. IV ABXS INFUSED. SLEPT LATER IN SHIFT. CALL LIGHT IN REACH. BED IN LOWEST POSITION. WILL CONTINUE TO MONITOR UNTIL DAY SHIFT NURSE ASSUMES CARE.
[2022-06-14 04:52] LABS: BASOPHILS PERCENT AUTO 1 % (0-2); EOSINOPHILS PERCENT AUTO 2 % (0-6); Hematocrit 31.1 % (33.0-51.0); Hemoglobin 9.8 g/dL (11.5-16.0); IMMATURE GRAN PERCENT AUTO 1 % (0-1); LYMPHOCYTES ABSOLUTE AUTO 2.38 K/mm3 (0.84-5.20); LYMPHOCYTES PERCENT AUTO 20 % (21-46); MONOCYTES ABSOLUTE AUTO 1.22 K/mm3 (0.16-1.47); MONOCYTES PERCENT AUTO 10 % (4-13); Mean Corpuscular HGB 28.2 pg (26.0-34.0); Mean Corpuscular HGB Conc 31.5 g/dL (31.5-36.5); Mean Corpuscular Volume 90 fL (80-100); Mean Platelet Volume 9.2 fL (9.1-12.4); NEUTROPHILS ABSOLUTE AUTO 7.78 K/mm3 (1.96-9.15); NEUTROPHILS PERCENT AUTO 66 % (41-73); Platelet Count 591 K/mm3 (150-400); RDW Coefficient Variation 14.8 % (11.7-14.2); Red Blood Cell Count 3.47 M/mm3 (3.80-5.20); White Blood Cell Count 11.78 K/mm3 (4.00-11.30)
[2022-06-14 05:09] LABS: Bun/Creatinine Ratio 13.9 (12.0-20.0); Calcium, Blood 8.6 mg/dL (8.5-10.1); Creatinine, Blood 0.43 mg/dL (0.40-1.00); Phosphorus, Blood 2.4 mg/dL (2.5-4.9); Potassium, Blood 3.5 mmol/L (3.5-5.5)
--- NOTE | 2022-06-14 18:11 | NUR ---
SHIFT SUMMARY PT AWAKE DURING SHIFT REPORT, SITTING UPRIGHT IN BED WATCHING TV. PT ADMITTED FOR RESP FAILURE AND PNM. MEDS GIVEN IN APPLESAUCE AND PT ONLY TO HAVE THICKENED LIQUIDS. PT HAS HIGH ANXIETY WITH FORGETFULNESS. DR LEBLANC IN TO SEE PT AND DISCUSS PLAN OF CARE. PT TO D/C TO HOME WITH H/H TOMORROW. PT ON 2L O2 WITH BIOX AT 98%. O2 DECREASED TO 1L AT THIS TIME. VISITOR TO TODAY FOR MOST OF THE AFTERNOON. PT UP TO BSC NEEDED AND UP TO CHAIR AT ALL AFTERNOON. PT C/O PAIN AT IV SITE WITH POTASSIUM PHOSPHATE, ABOUT HALF WAY THUR. IVF'S STOPPED UNTIL NEW IV CAN BE PLACED. PT MEDICATED THRU OUT THE DAY FOR C/O BACK PAIN, PER EMAR. SITTING UP EATING DINNER AT THIS TIME. DENIED FURTHER NEEDS. CALL LT IN REACH.
[2022-06-15 04:40] LABS: BASOPHILS ABSOLUTE AUTO 0.08 K/mm3 (0.00-0.23); BASOPHILS PERCENT AUTO 1 % (0-2); EOSINOPHILS ABSOLUTE AUTO 0.01 K/mm3 (0.00-0.68); EOSINOPHILS PERCENT AUTO 0 % (0-6); Hematocrit 31.9 % (33.0-51.0); Hemoglobin 10.3 g/dL (11.5-16.0); IMMATURE GRAN ABSOLUTE AUTO 0.16 K/mm3 (0.00-0.10); IMMATURE GRAN PERCENT AUTO 1 % (0-1); LYMPHOCYTES ABSOLUTE AUTO 2.03 K/mm3 (0.84-5.20); LYMPHOCYTES PERCENT AUTO 12 % (21-46); MONOCYTES ABSOLUTE AUTO 1.18 K/mm3 (0.16-1.47); MONOCYTES PERCENT AUTO 7 % (4-13); Mean Corpuscular HGB 28.6 pg (26.0-34.0); Mean Corpuscular HGB Conc 32.3 g/dL (31.5-36.5); Mean Corpuscular Volume 89 fL (80-100); Mean Platelet Volume 9.2 fL (9.1-12.4); NEUTROPHILS ABSOLUTE AUTO 13.22 K/mm3 (1.96-9.15); NEUTROPHILS PERCENT AUTO 79 % (41-73); Platelet Count 642 K/mm3 (150-400); RDW Standard Deviation 47.5 fL (35.1-46.3); White Blood Cell Count 16.68 K/mm3 (4.00-11.30)
[2022-06-15 04:46] LABS: Magnesium, Blood 1.7 mg/dL (1.6-2.4)
[2022-06-15 04:47] LABS: Bun/Creatinine Ratio 17.9 (12.0-20.0); Calcium, Blood 8.2 mg/dL (8.5-10.1); Creatinine, Blood 0.39 mg/dL (0.40-1.00); Potassium, Blood 3.8 mmol/L (3.5-5.5)
--- NOTE | 2022-06-15 08:24 | NUR ---
SUMMARY PT WOKE PER LAB THIS AM.CONFUSED. HAD BM IN BED ON FLOOR AND EVEN VOID AND BM IN SMALL TOOTH BRUSHING BASIN AT BEDSIDE. PT CONFUSED TO HER SURROUNDINGS AT THE TIME,IRRITABLE,NOT APPEARING TO UNDERSTAND HER BED AND CLOTHING WERE HAD STOOL IN SEVERAL AREAS. 2 RN AND CENTRAL SUPPLY MANAGER CLEANSED PT AND BAGGED UP CLOTHING CHANGE BED LINENS.PT WAS CALLING OUT "WHERE ARE MY TRANQUILIZERS" EVENTUALLY PT HANDED CENTRAL SUPPLY MANAGER A SMALL GLASS BOTTLE CONTAINING WHITE PILLS, AND CENTRAL SUPPLY MANAGER ALSO FOUND 4 OTHER WHITE PILLS LAYING IN PTS BED.PT RAISING VOICE AND YELLLING OUT SAYING SHE DID NOT TAKE ANY.HOWEVER, EXTRA ASSISTING NURSE REPORTED INA PT WOKE NIGHT BEFORE WITH SIMILAR CONFUSION. I LOCKED ALL PILLS INSIDE BOTTLE UP IN NURSING MED DRAW BELONGING TO THIS PTS ROOM. AND ADVISED MANISH MONTANO RN.
--- NOTE | 2022-06-15 16:31 | NUR ---
NO ACUTE CHANGES PT CONTINUE TO BE AOX3 WITH CONFUSION AT TIMES. PT IS A STANDBY ASSIST TO COMMODE. PT WAS REFUSING CARE IN THE AM WITH PHYSICAL THERAPY AND OT, BUT SEEMED TO CHANGE HER MIND LATER IN THE DAY. PT IS RESTING IN BED AT THIS TIME WILL CONTINUE TO MONITOR.
--- NOTE | 2022-06-15 17:19 | NUR ---
TRANSFERING CARE TO [facility].
[2022-06-16 04:47] LABS: BASOPHILS ABSOLUTE AUTO 0.06 K/mm3 (0.00-0.23); BASOPHILS PERCENT AUTO 0 % (0-2); EOSINOPHILS ABSOLUTE AUTO 0.06 K/mm3 (0.00-0.68); EOSINOPHILS PERCENT AUTO 0 % (0-6); Hematocrit 29.9 % (33.0-51.0); Hemoglobin 9.4 g/dL (11.5-16.0); IMMATURE GRAN ABSOLUTE AUTO 0.12 K/mm3 (0.00-0.10); IMMATURE GRAN PERCENT AUTO 1 % (0-1); LYMPHOCYTES ABSOLUTE AUTO 2.51 K/mm3 (0.84-5.20); LYMPHOCYTES PERCENT AUTO 19 % (21-46); MONOCYTES ABSOLUTE AUTO 1.08 K/mm3 (0.16-1.47); MONOCYTES PERCENT AUTO 8 % (4-13); Mean Corpuscular HGB Conc 31.4 g/dL (31.5-36.5); Mean Corpuscular Volume 89 fL (80-100); Mean Platelet Volume 9.2 fL (9.1-12.4); NEUTROPHILS ABSOLUTE AUTO 9.66 K/mm3 (1.96-9.15); NEUTROPHILS PERCENT AUTO 72 % (41-73); Platelet Count 572 K/mm3 (150-400); RDW Coefficient Variation 15.3 % (11.7-14.2); RDW Standard Deviation 47.8 fL (35.1-46.3); Red Blood Cell Count 3.36 M/mm3 (3.80-5.20); White Blood Cell Count 13.49 K/mm3 (4.00-11.30)
[2022-06-16] MEDS ORDERED: DIABETIC T100 MG/5 M PO (12:13)
[2022-06-16] MEDS ORDERED: METO50 PO (12:14)
[2022-06-16] MEDS ORDERED: PANT20 PO (12:16)
[2022-06-16] MEDS ORDERED: B-1100 M1 PO (12:17)
[2022-06-16] MEDS ORDERED: AMOCLA500 PO (12:24)
--- NOTE | 2022-06-16 14:40 | NUR ---
ATTEMPTED TO MAKE A VISIT, PT IS GOING HOME VIA FAMILY TO BE FOLLOWED BY HH.
--- NOTE | 2022-06-16 15:18 | NUR ---
DISCHARGE: PT D/C VIA HOSPITAL WHEELCHAIR WITH [id number]. PT STATED MANY TIMES "THEY TOLD ME I WAS GOING TO ." I ATTEMPTED TO EXPLAIN HER DIAGNOSIS AND WHAT HOME HEALTH WOULD PROVIDE TO HER BUT SHE WOULD NOT LISTEN AND CONTINUED TO TALK OVER ME. WHEN I STARTED DISCUSSING NEW MEDICATIONS, PT STATED "I JUST CALLED MY DOCTOR AND HE SAID NOT TO TAKE WHAT YOU ARE GIVING ME." PT SAID SHE WAS ALLERGI TO IV ABX GIVEN TO HER IN HOSPITAL AND NOBODY WOULD LISTEN TO HER. ONLY HEARD ABOUT THIS WHEN TAKING OUT IV. IV DID NOT HAVE ANY REDNESS, PAIN, SWEELING, OR DISCHARGE THAT INDICATED SHE REACTED NEGATIVELY TOWARD MEDICATION. SUNITA DROPPED OFF PORTABLE TANK TO PT.
== END 2022-06-16 14:27 | disposition home health service (06) | DRG 871 ==
LOC: ER 20:17 → MEDS 23:45
PROVIDERS: Emergency Medicine; Internal Medicine; Student in an Organized Health Care Education/Training Program; ADMIT Internal Medicine
DX: A41.9 Sepsis, unspecified organism (principal); J18.9 Pneumonia, unspecified organism; J96.21 Acute and chronic respiratory failure with hypoxia; J69.0 Pneumonitis due to inhalation of food and vomit; G31.84 Mild cognitive impairment of uncertain or unknown etiology; Z66 Do not resuscitate; Z51.5 Encounter for palliative care; E87.6 Hypokalemia; E83.42 Hypomagnesemia; E83.39 Other disorders of phosphorus metabolism; I48.0 Paroxysmal atrial fibrillation; R63.6 Underweight; R13.12 Dysphagia, oropharyngeal phase; J43.9 Emphysema, unspecified; R54 Age-related physical debility; J45.909 Unspecified asthma, uncomplicated; I25.10 Atherosclerotic heart disease of native coronary artery without angina pectoris; M51.9 Unspecified thoracic, thoracolumbar and lumbosacral intervertebral disc disorder; Z20.822 Contact with and (suspected) exposure to COVID-19; Y95 Nosocomial condition; Z90.710 Acquired absence of both cervix and uterus; Z90.49 Acquired absence of other specified parts of digestive tract; Z87.891 Personal history of nicotine dependence; Z91.040 Latex allergy status; Z88.5 Allergy status to narcotic agent; Z88.8 Allergy status to other drugs, medicaments and biological substances; Z79.899 Other long term (current) drug therapy; Z79.891 Long term (current) use of opiate analgesic; Z85.118 Personal history of other malignant neoplasm of bronchus and lung; Z98.890 Other specified postprocedural states; Z79.52 Long term (current) use of systemic steroids; Z79.51 Long term (current) use of inhaled steroids; Z79.2 Long term (current) use of antibiotics; Z68.23 Body mass index [BMI] 23.0-23.9, adult
CPT/HCPCS: 0241U; 36415; 71045; 74230; 80048; 80053; 83605; 83735; 84100; 84145; 84484; 85025; 85027; 87040; 92526; 92610; 92611; 93005; 93010; 94640; 94644; 94664; 94760; 96365; 96366; 96367; 96368; 96375; 97110; 97129; 97162; 97166; 97168; 97530; 97530-CQ; 97535; 99285-25; A9270; C9113; J0295; J0456; J0692; J1644; J2405; J3370; J3475; J3480; J7030; J7050; J7060

== ENCOUNTER 2022-06-18 17:56 | Inpatient (IN) | payer OTHER, MEDICAID ==
[~2022-06-18] VITALS: Ht 152.4 cm; Wt 40.6 kg
[~2022-06-18 17:56] MED LIST changes: +AMOCLA500 PO; +B-1100 M1 PO; +DIABETIC T100 MG/5 M PO; +METO50 PO; +PANT20 PO
[2022-06-18 19:16] LABS: BASOPHILS ABSOLUTE AUTO 0.04 K/mm3 (0.00-0.23); BASOPHILS PERCENT AUTO 0 % (0-2); EOSINOPHILS ABSOLUTE AUTO 0.02 K/mm3 (0.00-0.68); EOSINOPHILS PERCENT AUTO 0 % (0-6); Hematocrit 33.2 % (33.0-51.0); Hemoglobin 10.5 g/dL (11.5-16.0); IMMATURE GRAN ABSOLUTE AUTO 0.13 K/mm3 (0.00-0.10); IMMATURE GRAN PERCENT AUTO 1 % (0-1); LYMPHOCYTES ABSOLUTE AUTO 1.69 K/mm3 (0.84-5.20); LYMPHOCYTES PERCENT AUTO 13 % (21-46); MONOCYTES ABSOLUTE AUTO 0.74 K/mm3 (0.16-1.47); MONOCYTES PERCENT AUTO 6 % (4-13); Mean Corpuscular HGB 28.5 pg (26.0-34.0); Mean Corpuscular HGB Conc 31.6 g/dL (31.5-36.5); Mean Corpuscular Volume 90 fL (80-100); Mean Platelet Volume 9.4 fL (9.1-12.4); NEUTROPHILS ABSOLUTE AUTO 10.78 K/mm3 (1.96-9.15); NEUTROPHILS PERCENT AUTO 81 % (41-73); Platelet Count 559 K/mm3 (150-400); RDW Coefficient Variation 16.3 % (11.7-14.2); RDW Standard Deviation 50.3 fL (35.1-46.3); Red Blood Cell Count 3.69 M/mm3 (3.80-5.20)
[2022-06-18 19:28] LABS: Albumin/Globulin Ratio 0.4 (0.8-1.8); Bilirubin, Total 0.3 mg/dL (0.1-1.0); Bun/Creatinine Ratio 13.5 (12.0-20.0); Calcium, Blood 8.6 mg/dL (8.5-10.1); Creatinine, Blood 0.3 mg/dL (0.40-1.00); Globulin, Blood 4.8 g/dL (2.2-4.0); Total Protein, Blood 6.8 g/dL (6.4-8.2)
[2022-06-19 03:43] LABS: BASOPHILS ABSOLUTE AUTO 0.05 K/mm3 (0.00-0.23); BASOPHILS PERCENT AUTO 0 % (0-2); EOSINOPHILS ABSOLUTE AUTO 0.04 K/mm3 (0.00-0.68); EOSINOPHILS PERCENT AUTO 0 % (0-6); Hematocrit 28.3 % (33.0-51.0); Hemoglobin 9.2 g/dL (11.5-16.0); IMMATURE GRAN ABSOLUTE AUTO 0.08 K/mm3 (0.00-0.10); IMMATURE GRAN PERCENT AUTO 1 % (0-1); LYMPHOCYTES ABSOLUTE AUTO 2.18 K/mm3 (0.84-5.20); LYMPHOCYTES PERCENT AUTO 15 % (21-46); MONOCYTES ABSOLUTE AUTO 0.91 K/mm3 (0.16-1.47); MONOCYTES PERCENT AUTO 6 % (4-13); Mean Corpuscular HGB 28.8 pg (26.0-34.0); Mean Corpuscular HGB Conc 32.5 g/dL (31.5-36.5); Mean Corpuscular Volume 89 fL (80-100); Mean Platelet Volume 8.8 fL (9.1-12.4); NEUTROPHILS ABSOLUTE AUTO 11.34 K/mm3 (1.96-9.15); NEUTROPHILS PERCENT AUTO 78 % (41-73); Platelet Count 485 K/mm3 (150-400); RDW Coefficient Variation 16.5 % (11.7-14.2); Red Blood Cell Count 3.19 M/mm3 (3.80-5.20)
[2022-06-19 04:36] LABS: Albumin, Blood 1.7 g/dL (3.4-5.0); Albumin/Globulin Ratio 0.4 (0.8-1.8); Bilirubin, Total 0.2 mg/dL (0.1-1.0); Bun/Creatinine Ratio 10.7 (12.0-20.0); Calcium, Blood 8.1 mg/dL (8.5-10.1); Creatinine, Blood 0.28 mg/dL (0.40-1.00); Globulin, Blood 4.3 g/dL (2.2-4.0); Potassium, Blood 3.3 mmol/L (3.5-5.5)
--- NOTE | 2022-06-19 06:23 | NUR ---
PT A&O X4, BUT C/O SOME CONFUSION/NOT AT BASELINE. ABLE TO ANSWER ALL ADMISSION QUESTIONS APPROPRIATELY. GOOD HISTORIAN. SBP ELEVATED, WELL HR. LASIX, CLONAPIN, AND NORCO GIVEN WITH GREAT EFFECT ON VITALS AND PT ABILITY TO REST. PT DID HAVE FREQUENT TRIPS TO [facility] WITH GOOD RESPONSE TO LASIX IVP. PT LOST 2 KG OVERNIGHT. TOWARDS END OF SHIFT, PT WOKE UP AND HR CLIMBED INTO THE 120-150S. SBP ALSO ELEVATED. LOPRESSOR GIVEN AND WAS AN EFFECTIVE TREATMENT FOR BOTH SBP AND HR. ALSO, PT C/O DIFFICULTY BREATHING. RT GAVE BREATHING TREATMENT, WHICH HELPED WITH DYSPNEA. WILL CONTINUE TO MONITOR RESP STATUS CLOSELY.
--- NOTE | 2022-06-19 16:49 | NUR ---
Brief supportive visit this afternoon. Pt is know to this clinical writer from previous hospital stay. Brief review of plan of care. Pt appears anxious as evidenced by repositioning her self in bed constantly. Pt struggling staying on topic. Ended visit as Pt answers her phone. Palliative Care will F/U for advanced care planning.
--- NOTE | 2022-06-19 18:14 | NUR ---
SHIFT SUMMARY; ASSUMED CARE AT 0700, A/A/OX4 DURING SHIFT. 4L 02 VIA NC, BASELINE HOME O2 3L. MOVES SELF ON GURNEY, TO BEDSIDE COMMODE WITH STAND BY ASSIST. EVALUATED TODAY BY ST/PT/OT. VSS, NO ACUTE CHANGES DURING SHIFT. WILL CONTINUE TO MONITOR AND TREAT UNTIL CHANGE OF SHIFT.
--- NOTE | 2022-06-19 22:37 | NUR ---
NOTIFIED DR. MENDENHALL REGARDING 6 BEAT RUN OF SVT/VTACH
[2022-06-20 04:46] LABS: Bun/Creatinine Ratio 6.8 (12.0-20.0); Calcium, Blood 7.9 mg/dL (8.5-10.1); Creatinine, Blood 0.3 mg/dL (0.40-1.00); Magnesium, Blood 1.8 mg/dL (1.6-2.4); Potassium, Blood 3.3 mmol/L (3.5-5.5)
--- NOTE | 2022-06-20 17:23 | NUR ---
SHIFT SUMMARY ASSUMED CARE AT 070O. A/A/OX4, 4L O2 VIA NC, REPOSITIONS SELF IN BED NEEDED. ORAL CARE PROVIDED TODAY, DECLINES BED BATH. UP TO BEDSIDE COMMODE WITH STANDBY ASSIST. COOPERATIVE WITH CARE. STATUS CHANGED TO MEDICAL, REPORT GIVEN TO NELA ROSARIO FOR IN HOUSE TRANSFER.
--- NOTE | 2022-06-20 18:52 | NUR ---
SHIFT SUMMARY: ASSUMED CARE OF PATIENT AT 1709 UPON HER TRANSFER FROM PCU. ABLE TO TRANSFER FROM CHAIR TO BED WITH MINIMAL ASSIST. TELMETRY BOX VERIFIED WITH Joseline FAUST HYDROMETEOROLOGICAL TECHNICIAN. ON O2 @ 4 L/MIN NC. KCL IVPB INFUSING ON ARRIVAL. TOLERATED DINNER WELL. PAIN CONTROLLED AT THIS TIME.
--- NOTE | 2022-06-21 01:33 | NUR ---
NURSE NOTE--CALL FROM TELE MONITOR JUST ASSISTED PT T/BSC AND BACK. CALL F/TELE MONITOR; SERGIO GROVE; REPORT A 13 RUN OF VTACH. PT DENIES CHEST PAIN/PALPATATIONS.
--- NOTE | 2022-06-21 04:12 | NUR ---
SPRINKLER HELPER SUMMARY PT A/OX4 W/SOME FORGETFULNESS. RT AT BEDSIDE AND DROPPED O2 TO 3L NC. PT REPORTS PAIN IN BACK R/T COMPRESSION FX. MED P/EMAR. ON TELE; 0NE RUN OF SVT (SEE NOTE), PT SINUS TACH IN LOW 100'S. PT WAKEFUL T/O THE NIGHT; MULTPLE TIMES T/BSC. PT HAD 1 LOOSE LIGHT BROWN STOOL. PT REFUSED STOOL SOFTNERS W/2100 MEDS. PT ABLE TO MAKE NEEDS KNOWN. CALL LIGHT ACCESSIBLE.
[2022-06-21 05:42] LABS: Bun/Creatinine Ratio 14.6 (12.0-20.0); Calcium, Blood 8.3 mg/dL (8.5-10.1); Creatinine, Blood 0.27 mg/dL (0.40-1.00); Potassium, Blood 3.8 mmol/L (3.5-5.5)
--- NOTE | 2022-06-21 17:44 | NUR ---
SHIFT SUMMARY: NO ACUTE EVENTS. HEART RATE DECREASED TO 70-80'S AFTER INCREASE IN METOPROLOL DOSE; TELEMETRY D/C'D. O2 @ 4 L/MIN NC, BREATH SOUNDS DIM THROUGHOUT. C/O ACUTE ON CHRONIC MID BACK PAIN; MEDICATED PER EMAR WITH ADEQUATE RELIEF. TOLERATING MODIFIED DIET, DENIED NAUSEA. HAD LOOSE STOOL X 1 THIS MORNING. GETTING UP TO BSC INDEPENDENTLY. REFUSED TO TAKE JARDIANCE EVEN AFTER RATIONALE FOR USE (HEART FAILURE) WAS EXPLAINED TO HER.
--- NOTE | 2022-06-21 19:43 | NUR ---
NURSE NOTE--PHYSICIAN CONTACT CALL TO HOP WORKER DR--NEW ORDER TO STOP LASIX BID AND START LASIX BIDD. WILL GIVE 2100 TONIGHT AND NEW SCHEDULE WILL START TOMORROW.
--- NOTE | 2022-06-22 03:58 | NUR ---
DRY MIXER SUMMARY NO ACUTE CHANGES. PT A/OX4 W/SOME FORGETFULLNESS. RT DROPPED O2 TO 3L NC DUE TO BONNIE O2 SATS. PT MAINTAIN SATS >90% ON 3L. PT GETTING 40MG LASIX BID; CHANGED TO BIDD. PT HAS VERY LITTLE ORAL INTAKE W/NECTAR THICK LIQUIDS. PT CONT T/REPORT BACK PAIN R/T COMPRESSION FX. MED P/EMAR. PT ABLE TO MAKE NEEDS KNOWN, CALLS APPROPRIATELY. CALL LIGHT ACCESSIBLE. PT CONT W/LOOSE STOOLS-REF SENNA W/2100 MEDS.
[2022-06-22 05:14] LABS: Bun/Creatinine Ratio 26.2 (12.0-20.0); Calcium, Blood 8.5 mg/dL (8.5-10.1); Creatinine, Blood 0.27 mg/dL (0.40-1.00); Potassium, Blood 3.6 mmol/L (3.5-5.5)
--- NOTE | 2022-06-22 17:29 | NUR ---
SHIFT SUMMARY: PT A/O X 4, STANDBY ASSIST WITH WALKER. PT ON 2 LPM VIA NC. PT BACK PAIN MANAGED WITH CURRENT MEDICATIONS. PT REPORTS FEELING STRONGER. SHE IS AMBULATING WITH MINIMAL ASSIST TO BSC. PT VERY FRAIL AND CACHECTIC IN APPEARANCE.
--- NOTE | 2022-06-23 04:30 | NUR ---
SHIFT SUMMARY PT RESTING QUIETLY THROUGHOUT MOST OF SHIFT. ADMINISTERED PAIN MED TOWARD BEGINNING OF SHIFT FOR BACK PAIN. PT CONTINUES ON 4L O2 VIA NC. NO S/S DISTRESS. NO C/O CP, SOB, N/V/D. WILL CONTINUE TO MONITOR AND PROVIDE CARE THROUGHOUT SHIFT.
[2022-06-23 06:45] LABS: Calcium, Blood 8.7 mg/dL (8.5-10.1); Creatinine, Blood 0.32 mg/dL (0.40-1.00); Potassium, Blood 4.5 mmol/L (3.5-5.5)
--- NOTE | 2022-06-23 07:06 | NUR ---
CALLED HOSPITALIST HR IN 130'S BPM. INFORMED HOSPITALIST. TELEMETRY ORDERED IV LOPRESSOR ORDERED. IV LOPRESSOR HELD TELEMTRY REVEALED HR OF 93 BPM. BRIEF MOMENTS OF UNSUSTAINED TACH X2 BEFORE END OF SHIFT.
--- NOTE | 2022-06-23 16:39 | NUR ---
Pt resting in bed upon arrival. Offered therapeutic listening and reviewed plan of care. Engaged in therapeutic conversation regarding advanced care planning. Educated on disease process including tranjectory. Discussed the importance planning for the future as disease progresses. Discussed the potential need to consider hospice in the future. Encourage Pt to evaulate her goals and values for if this time comes. Discussed consider [facility] program upon D/C. Pt reports plan to consider this option. Continued supportive visist. Palliative Care will remain available
--- NOTE | 2022-06-23 17:20 | NUR ---
SHIFT SUMMARY PT A&OX4 AND PLEASANT. FORGETFUL AT TIMES. PT HAVING LOOSE STOOL IN MORNING BUT NO BM IN AFTERNOON. PT C/O CHRONIC BACK PAIN. REPOSITIONED AND MEDICATED PER EMAR. PT ON 4L OF O2 AND SATING >90%. PER EVENT EXECUTIVE, PT'S HR WAS IN THE 120'S-130'S THIS MORNING. DR MARTINEZ NOTIFIED AND NO ORDERS GIVEN. ADULT PROTECTIVE SERVICE IN TO TALK WITH PT THIS AFTERNOON. CALLS APPROPRIATLY. BED IN LOWEST POSITION AND CALL LIGHT IN REACH.
--- NOTE | 2022-06-24 04:18 | NUR ---
shift summary 82 yr f admitted on 06/18/22 for acute respiratory failure. dnr. no acute changes this shift. PT IS A&O, PLEASANT, AND COOPERATIVE WITH CARE. STOOL SOFTENER WAS HELD AND NO BM THIS SHIFT. PT C/O BACK PAIN AND WAS MEDICATED PER EMAR. SHE APPEARS TO HAVE SLEPT COMFORTABLY FOR MOST OF THE SHIFT BUT DID ASK TO BE REPOSITIONED 1 TIME FOR COMFORT. SHE HAD LITTLE TO NO COUGHING THIS SHIFT WELL.
--- NOTE | 2022-06-24 17:18 | NUR ---
SHIFT SUMMARY: PT A&O X3-4. NO ACUTE CHANGES WITH PT THIS SHIFT. PT HAS BEEN VERY PLEASANT AND COOPERATIVE WITH CARE. PT HAS C/O PAIN THREE TIMES THIS SHIFT ALL BEING A 7/10 PAIN IN BACK. PT CURRENTLY ON 4L AND TOLERATING WELL WITH SATS >92%. PT HAD SINUS TACH THIS MORNING WITH A PULSE OF 135 BPM. NO CALLS FROM TELE SINCE METOPROLOL WAS GIVEN. CURRENTLY SINUS RHYTHM. PT IS STATING SMASH HAND IS LOOKING FOR A HOME TO PLACE HER. PT SB ASSIST TO BEDSIDE COMMODE. CALL LIGHT IN REACH. BED IN LOWEST POSITION. WILL CONTINUE TO MONITOR.
--- NOTE | 2022-06-25 05:13 | NUR ---
SHIFT SUMMARY 82 YR F ADMITTED ON 06/18/22 FOR ACUTE RESPIRATORY FAILURE. DNR. NO ACUTE CHANGES THIS SHIFT. PT STATED THAT SOMEONE FROM THE [facility] CALLED HER REGARDING POSSIBLE PLACEMENT THERE AND SHE IS VERY EXCITED ABOUT IT. SHE STATES THAT SHE HAS FRIENDS THERE AND VISITS OFTEN AND THAT IT IS THE PERFECT PLACE FOR HER TO GO. SHE IS HOPING TO HEAR BACK FROM THEM AGAIN TODAY. SHE IS PLEASANT AND COOPERATIVE WITH CARE AND SHE HAS HAD NO C/O PAIN OR DISCOMFORT THIS SHIFT.
[2022-06-25 17:03] LABS: Bun/Creatinine Ratio 32.9 (12.0-20.0); Calcium, Blood 8.8 mg/dL (8.5-10.1); Creatinine, Blood 0.43 mg/dL (0.40-1.00); Potassium, Blood 4.1 mmol/L (3.5-5.5)
--- NOTE | 2022-06-25 19:29 | NUR ---
SHIFT SUMMARY: NO ACUTE EVENTS. C/O 12/03 CHRONIC PAIN IN BACK; IS REQUESTING PAIN MEDS AT EXACTLY 4 HOURS, IS WATCHING THE CLOCK. TACHYCARDIC AT REST AT BEGINNING OF SHIFT, BUT HR CAME DOWN TO 80'S AFTER METOPROLOL GIVEN. ON O2 @ 4 L/MIN NC WITH SATS IN THE MID 90'S. APPETITE IS POOR. GETTING UP TO BSC WITH SBA.
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
[2022-06-26] MEDS ORDERED: HYDR1TAB94 PO (15:30)
[2022-06-26] MEDS ORDERED: JARDIANCE10 MG PO (15:30)
[2022-06-26] MEDS ORDERED: FURO20 PO (15:31)
--- NOTE | 2022-06-26 17:26 | NUR ---
Discharge Summary A/Ox3, pleasant/cooperative. Independent to bsc. DC home with . Reviewed d/c papers with patient, no questions at this time. Patient was anxious so reviewing wasn't that effective. Did touch on the most important changes to her medications (continued abx, new meds, and refill of home med). Meds faxed to [facility]. Escorted by [employer] via w/c. Belongings sent home. [facility] [place] delivered O2 tank which patient took with her home.
== END 2022-06-26 17:51 | disposition home health service (06) | DRG 177 ==
LOC: ER 17:56 → MEDS 21:07 → PCU 21:07 → MEDS 06-20 17:09
PROVIDERS: Internal Medicine; Student in an Organized Health Care Education/Training Program; ADMIT Internal Medicine
DX: J69.0 Pneumonitis due to inhalation of food and vomit (principal); I50.31 Acute diastolic (congestive) heart failure; J96.21 Acute and chronic respiratory failure with hypoxia; M48.54XA Collapsed vertebra, not elsewhere classified, thoracic region, initial encounter for fracture; F03.A4 Unspecified dementia, mild, with anxiety; Z66 Do not resuscitate; J43.9 Emphysema, unspecified; I25.10 Atherosclerotic heart disease of native coronary artery without angina pectoris; E87.6 Hypokalemia; G89.29 Other chronic pain; R91.1 Solitary pulmonary nodule; M54.9 Dorsalgia, unspecified; R13.12 Dysphagia, oropharyngeal phase; I48.0 Paroxysmal atrial fibrillation; I27.20 Pulmonary hypertension, unspecified; Z99.81 Dependence on supplemental oxygen; Z85.118 Personal history of other malignant neoplasm of bronchus and lung; Z90.710 Acquired absence of both cervix and uterus; Z90.49 Acquired absence of other specified parts of digestive tract; Z90.2 Acquired absence of lung [part of]; Z98.890 Other specified postprocedural states; Z87.891 Personal history of nicotine dependence; Z88.6 Allergy status to analgesic agent; Z88.8 Allergy status to other drugs, medicaments and biological substances; Z91.040 Latex allergy status; Z79.899 Other long term (current) drug therapy
CPT/HCPCS: 36415; 71045; 71260; 80048; 80053; 83605; 83735; 83880; 84443; 84484; 85025; 87040; 92526; 92610; 93005; 93010; 93306; 94640; 94664; 94760; 94762; 96374-59; 96375; 97110; 97110-CQ; 97116; 97116-CQ; 97162; 97530; 99285-25; A9270; J0295; J0456; J0696; J1650; J1940; J3475; J3480; J7050; Q9967